=== PATIENT | female | born 1990 | race African-American/Black ===

== ENCOUNTER 2017-01-18 16:47 | Inpatient (IN) | payer OTHER ==
[~2017-01-18] VITALS: Ht 162.6 cm; Wt 77.0 kg
[~2017-01-18 16:47] MED LIST: PROC2.5C RECTAL; TERC.4%V VAGINAL
[2017-01-18] MEDS ORDERED: LACTATED RINGER'S 1000 ML INJ 1,000 ML IV PRN (17:50)
[2017-01-18] MEDS ORDERED: LIDOCAINE HCL 1% 50 ML VIAL I-DERMAL PRN (18:00)
[2017-01-18] MEDS ORDERED: OXYTOCIN 30 UNITS-500ML PREMIX 500 ML IV SCH (18:00)
[2017-01-18] MEDS ORDERED: ONDANSETRON HCL 4 MG/2 ML VIAL IV PRN (18:00)
[2017-01-18] MEDS ORDERED: PENICILLIN G POTASSIUM INJ 5,000,000 UNITS in SODIUM CHLORIDE 0.9% INJ 100 ML IV ONE (18:00)
[2017-01-18] MEDS ORDERED: LIDOCAINE HCL 1% 50 ML VIAL INFIL PRN (18:00)
[2017-01-18] MEDS ORDERED: SODIUM CHLORID 0.9% 500 ML INJ 500 ML IV PRN (18:00)
[2017-01-18] MEDS ORDERED: MINERAL OIL 10 ML VIAL TOPICAL PRN (18:00)
[2017-01-18] MEDS ORDERED: CITRIC ACID-SODIUM CITRATE LIQ 30 ML UDC PO SCH (18:00)
[2017-01-18] MEDS ORDERED: OXYTOCIN 30 UNITS-500ML PREMIX 500 ML IV ONE (18:00)
--- NOTE | 2017-01-18 18:08 | PD ---
HPI Chief Complaint ROM, rule out labor Date Seen: Jan 18, 2017 Time Seen: 17:57 Travel History International Travel<30 Days: No Contact w/Intl Traveler<30Days: No Known Affected Area: No History of Present Illness HPI 26y at 34/2 with EDC 02/27/17 from [facility] who presents with clear rupture of membranes earlier this morning at 7:45am. Feeling an occasional contraction "here and there", report continuously leaking amniotic fluid "filling four diapers", continued movement. Denies vaginal bleeding. She has follows with [facility]. We do not have labs with the chart. Does NOT want epidural. 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 Outcome Route Length of Anesthesia Delivery Date Age/Wks # Weight/Sex Labor Location Labor 11/08/13 41 1 Live Vaginal 5 lbs 4 oz - M 22 Hrs None [place] No 11/06/15 38 1 Live Vaginal 4 lbs 8 oz - F 22 Hrs None [place] No Progression #: 3 Date EGA BP Wt Alb Glu FuHt Pres FHR F/m CTX Edema Dil Eff Sta Prov 11/20/16 25w6d 116/46 163 n 25 Unstable 146 Active Absent Absent 0 0 lb 12/22/16 30w3d 122/80 166 tr n 30 Ceph 150 Active Absent Absent lb 01/05/17 32w3d 112/64 170 n n 32 Ceph 146 Active Absent Absent sc Past Surgical History Narrative Surgical Surgical removal dermoid cyst x2 Family History Narrative Family History Denies family history of bleeding disorders, cancer, or other relevant genetic disorders Family History: Negative Social History Narrative Social History Alcohol Use: No Tobacco Use: No Substance Abuse: No Allergies-Medications (Allergen,Severity, Reaction): Coded Allergies: Kiwi (Verified Allergy, Severe, Nausea/Vomiting, 01/18/17) NAUSEA VOMITING AND DIARRHEA PER PT 11/25 Latex (Verified Allergy, Severe, Hives, 01/18/17) Home Meds Active Scripts Hydrocortisone Rectal (Proctosol Hc)2.5% Cream1 Applic RECTAL BID PRN (PAIN/ INFLAMMATION) #1 TUBE Ref 2 Prov:Rossana Sorensen VENDING SERVICE TECHNICIAN 01/05/17 W/O Vit A W/ Fe Carbo (Prenate Mini 18-0.6-0.4-350 mg)1 Cap Cap Sample #2 Prov:Mirtha Cope CNM VENDING SERVICE TECHNICIAN 11/20/16 Review of Systems Except as stated in HPI: all other systems reviewed are Neg Physical Exam Reviewed in OB trace. Normotensive. Pulse wnl. Breathing well on room air. Narrative GENERAL: Gravid AA female. SKIN: Warm and dry. HEAD: Normocephalic and atraumatic. EYES: No scleral icterus. No injection or drainage. ENT: No nasal drainage noted. Mucous membranes moist. Airway patent. NECK: Supple, trachea midline. No JVD. CARDIOVASCULAR: Pulse within normal limits. Good peripheral perfusion. RESPIRATORY: Breathing well on room air. ABDOMEN/GI: Abdomen gravid, appropriate for dates : -50/ -3, very high and posterior SROM 01/18/17: 0745 FHT's: Category: 1 Baseline: 130 Reactive: yes Variability: mod Decels: no EXTREMITIES: No cyanosis or edema. BACK: Without obvious deformity NEUROLOGICAL: Awake and alert. Motor and sensory grossly within normal limits. Speech soft, with somewhat childish affect Data Data Vital Signs Reviewed: Yes Orders Ob (2e) Additional Admit Info (01/18/17 17:26) Admit To Inpatient (01/18/17 ) Code Status (01/18/17 17:50) Vital Signs (Adult) .Per protocol (01/18/17 17:50) Activity Oob Ad Bre (01/18/17 17:50) Heart (01/18/17 17:50) Amnioinfusion (01/18/17 17:50) Urinary Catheter Management .ONCE (01/18/17 17:50) Diet Liquid (01/18/17 Dinner) Lactated Ringer's 1000 Ml Inj (Lr 1000 M (01/18/17 17:50) Lactated Ringer's 1000 Ml Inj (Lr 1000 M (01/18/17 17:50) Sodium Chlorid 0.9% 500 Ml Inj (Ns 500 M (01/18/17 18:00) Sodium Chlor 0.9% 1000 Ml Inj (Ns 1000 M (01/18/17 18:10) Lidocaine 1% Inj (50 Ml) (Xylocaine 1% I (01/18/17 18:00) Citric Acid-Sodium Citrate Liq (Bicitra (01/18/17 18:00) Ondansetron Inj (Zofran Inj) (01/18/17 18:00) Fentanyl Inj (Fentanyl Inj) (01/18/17 18:00) Fentanyl Inj (Fentanyl Inj) (01/18/17 18:00) Penicillin G Potassium Inj (Pfizerpen-G (01/18/17 18:00) Penicillin G Potassium Inj (Pfizerpen-G (01/18/17 22:00) Complete Blood Count With Diff (01/18/17 17:50) Hold Clot (01/18/17 17:50) Abo/Rh Blood Type (01/18/17 17:50) Urinalysis - C+S If Indicated (01/18/17 17:50) Resp Oxygen Non Rebreathe Mask (01/18/17 ) ^ Epidural / Intrathecal Infus (01/18/17 17:50) Oxytocin 30 Units-500ml Premix (Pitocin (01/18/17 18:00) Lidocaine 1% Inj (50 Ml) (Xylocaine 1% I (01/18/17 18:00) Light Mineral Oil (Muri-Lube Oil) (01/18/17 18:00) Inpatient Certification (01/18/17 ) Specimen To Be Collected PRN (01/18/17 17:50) ^ Non Stress Test (01/18/17 17:54) Response To Medication .Post New Med Administration, Reaction (01/18/17 17:54) ^ Discontinue Medication (01/18/17 17:54) Oxytocin 30 Units-500ml Premix (Pitocin (01/18/17 18:00) MDM Medical Record Reviewed: Yes Plan 26y at 34/2 presenting in active labor with clear SROM at 01/18/17 at 0745. 1. Intrauterine with PPROM Admit for Labor Category I tracing ROM 11hr at present (since 0745) 3cm/40/-3, will induce with Pitocin, start after reassuring strip obtained Will draw routine labs, as we do not have- CBC RPR, Hepatitis panel, U/ A, Type and Screen Anticipate vaginal delivery 2. GBS unknown Will treat with PNC (pre-term and GBS status unknown) 3. Hx of Anxiety/PTSD/Post Depression s/p Sandhu Act (01/2016) Reassurance provided OB UDS pending 4. Refusal of Blood Products for Christian Reasons Jehovah Witness, form signed 5. Hemorrhoids Preparation H PRN SDW: Dr. Naty Arce DW: Jeannette Mackenzie MD R1 Jan 18, 2017 18:08
[2017-01-18] MEDS ORDERED: SODIUM CHLOR 0.9% 1000 ML INJ 1,000 ML IV PRN (18:10)
--- NOTE | 2017-01-18 18:37 | HHI.HP ---
History & Physical H&P MEDICAL BILLING REPRESENTATIVE H&P Patient Name: Kalyn Hagen Unit Number: [id number] Date of : 1990 Patient Status: Admitted Inpatient Attending Doctor: Luis Mena II, MD HPI HPI Chief Complaint ROM, rule out labor Date Seen: Jan 18, 2017 Time Seen: 17:57 Travel History International Travel<30 Days: No Contact w/Intl Traveler<30Days: No Known Affected Area: No History of Present Illness HPI 26y at 34/2 with EDC 02/27/17 from [facility] who presents with clear rupture of membranes earlier this morning at 7:45am. Feeling an occasional contraction "here and there", report continuously leaking amniotic fluid "filling four diapers", continued movement. Denies vaginal bleeding. She has follows with [facility]. We do not have labs with the chart. Does NOT want epidural. 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 Outcome Route Length of Anesthesia Delivery Date Age/Wks # Weight/Sex Labor Location Labor 11/08/13 41 1 Live Vaginal 5 lbs 4 oz - M 22 Hrs None [place] No 11/06/15 38 1 Live Vaginal 4 lbs 8 oz - F 22 Hrs None [place] No Progression #: 3 Date EGA BP Wt Alb Glu FuHt Pres FHR F/m CTX Edema Dil Eff Sta Prov 11/20/16 25w6d 116/46 163 n 25 Unstable 146 Active Absent Absent 0 0 lb 12/22/16 30w3d 122/80 166 tr n 30 Ceph 150 Active Absent Absent lb 01/05/17 32w3d 112/64 170 n n 32 Ceph 146 Active Absent Absent sc Past Surgical History Narrative Surgical Surgical removal dermoid cyst x2 Family History Narrative Family History Denies family history of bleeding disorders, cancer, or other relevant genetic disorders Family History: Negative Social History Narrative Social History Alcohol Use: No Tobacco Use: No Substance Abuse: No Allergies-Medications Allergies-Medications (Allergen,Severity, Reaction): Coded Allergies: Kiwi (Verified Allergy, Severe, Nausea/Vomiting, 01/18/17) NAUSEA VOMITING AND DIARRHEA PER PT 11/25 Latex (Verified Allergy, Severe, Hives, 01/18/17) Home Meds Active Scripts Hydrocortisone Rectal (Proctosol Hc)2.5% Cream1 Applic RECTAL BID PRN (PAIN/ INFLAMMATION) #1 TUBE Ref 2 Prov:Rossana Sorensen [place] 01/05/17 W/O Vit A W/ Fe Carbo (Prenate Mini 18-0.6-0.4-350 mg)1 Cap Cap Sample #2 Prov:Mirtha Cope CNM [place] 11/20/16 ROS Review of Systems Except as stated in HPI: all other systems reviewed are Neg Physical Exam Physical Exam Reviewed in OB trace. Normotensive. Pulse wnl. Breathing well on room air. Narrative GENERAL: Gravid AA female. SKIN: Warm and dry. HEAD: Normocephalic and atraumatic. EYES: No scleral icterus. No injection or drainage. ENT: No nasal drainage noted. Mucous membranes moist. Airway patent. NECK: Supple, trachea midline. No JVD. CARDIOVASCULAR: Pulse within normal limits. Good peripheral perfusion. RESPIRATORY: Breathing well on room air. ABDOMEN/GI: Abdomen gravid, appropriate for dates : 3 / 40-50/ -3, very high and posterior SROM 01/18/17: 0745 FHT's: Category: 1 Baseline: 130 Reactive: yes Variability: mod Decels: no EXTREMITIES: No cyanosis or edema. BACK: Without obvious deformity NEUROLOGICAL: Awake and alert. Motor and sensory grossly within normal limits. Speech soft, with somewhat childish affect Data Data Data Vital Signs Reviewed: Yes Orders Ob (2e) Additional Admit Info (01/18/17 17:26) Admit To Inpatient (01/18/17 ) Code Status (01/18/17 17:50) Vital Signs (Adult) .Per protocol (01/18/17 17:50) Activity Oob Ad Bre (01/18/17 17:50) Heart (01/18/17 17:50) Amnioinfusion (01/18/17 17:50) Urinary Catheter Management .ONCE (01/18/17 17:50) Diet Liquid (01/18/17 Dinner) Lactated Ringer's 1000 Ml Inj (Lr 1000 M (01/18/17 17:50) Lactated Ringer's 1000 Ml Inj (Lr 1000 M (01/18/17 17:50) Sodium Chlorid 0.9% 500 Ml Inj (Ns 500 M (01/18/17 18:00) Sodium Chlor 0.9% 1000 Ml Inj (Ns 1000 M (01/18/17 18:10) Lidocaine 1% Inj (50 Ml) (Xylocaine 1% I (01/18/17 18:00) Citric Acid-Sodium Citrate Liq (Bicitra (01/18/17 18:00) Ondansetron Inj (Zofran Inj) (01/18/17 18:00) Fentanyl Inj (Fentanyl Inj) (01/18/17 18:00) Fentanyl Inj (Fentanyl Inj) (01/18/17 18:00) Penicillin G Potassium Inj (Pfizerpen-G (01/18/17 18:00) Penicillin G Potassium Inj (Pfizerpen-G (01/18/17 22:00) Complete Blood Count With Diff (01/18/17 17:50) Hold Clot (01/18/17 17:50) Abo/Rh Blood Type (01/18/17 17:50) Urinalysis - C+S If Indicated (01/18/17 17:50) Resp Oxygen Non Rebreathe Mask (01/18/17 ) ^ Epidural / Intrathecal Infus (01/18/17 17:50) Oxytocin 30 Units-500ml Premix (Pitocin (01/18/17 18:00) Lidocaine 1% Inj (50 Ml) (Xylocaine 1% I (01/18/17 18:00) Light Mineral Oil (Muri-Lube Oil) (01/18/17 18:00) Inpatient Certification (01/18/17 ) Specimen To Be Collected PRN (01/18/17 17:50) ^ Non Stress Test (01/18/17 17:54) Response To Medication .Post New Med Administration, Reaction (01/18/17 17:54) ^ Discontinue Medication (01/18/17 17:54) Oxytocin 30 Units-500ml Premix (Pitocin (01/18/17 18:00) MDM MDM Medical Record Reviewed: Yes Plan 26y at 34/2 presenting in active labor with clear SROM at 01/18/17 at 0745. LATEX ALLERGY. JEHOVAH WITNESS. 1. Intrauterine with PPROM Admit for Labor Routine Care Category I tracing reassuring ROM 11hr at present (since 744) 3cm/40/-3, will induce, start Pitocin after reassuring strip obtained Need routine labs- CBC RPR, Hepatitis panel, U/A, Type and Screen pending Anticipate vaginal delivery 2. GBS unknown Will treat with PNC (pre-term and GBS status unknown) 3. Hx of Anxiety/PTSD/Post Depression s/p Sandhu Act (01/2016) Reassurance provided OB UDS pending 4. Refusal of Blood Products for Jew Reasons Jehovah Witness, form signed 5. Hemorrhoids Preparation H PRN SDW: Dr. Naty Arce DW: Jeannette Mackenzie MD R1 Jan 18, 2017 18:37
[2017-01-18] MEDS: LACTATED RINGER'S 1000 ML INJ 1,000 ML IV SCH ×2 (18:42→22:32)
[2017-01-18 19:01] LABS: BASOPHIL % 0.4 % (0.0-2.0); EOSINOPHIL # 0.1 TH/MM3 (0-0.4); EOSINOPHIL % 0.6 % (0.0-4.0); HEMATOCRIT 31.1 % (35.0-46.0); HEMO FLAGS DIFF FINAL; LYMPHOCYTE # 2.6 TH/MM3 (1.0-4.8); MEAN CELL VOLUME 84.9 FL (80.0-100.0); MEAN CORPUSCULAR HEMOGLOBIN 28.8 PG (27.0-34.0); MEAN CORPUSCULAR HGB CONC 33.9 % (32.0-36.0); MONO % 9.6 % (0.0-8.0); NEUT % 69.4 % (16.0-70.0); PLATELET COUNT 276 TH/MM3 (150-450); RED BLOOD COUNT 3.66 MIL/MM3 (4.00-5.30); RED CELL DISTRIBUTION WIDTH 13.5 % (11.6-17.2); WHITE BLOOD COUNT 12.9 TH/MM3 (4.0-11.0)
[2017-01-18 19:06] LABS: BACTERIA, URINE RARE /hpf; BLOOD, URINE TRACE (NEG); COMMENT (UR) CULTURE INDICATED; CULTURE IF INDICATED CULTURE INDICATED; GLUCOSE,URINE NEG (NEG); KETONE, URINE NEG (NEG); MUCUS URINE FEW /lpf (OCC); NITRITE,URINE NEG (NEG); PH, URINE 7.5 (5.0-8.5); SQUAMOUS EPITHELIAL CELL URINE 13 /hpf (0-5); URINE COLOR LIGHT-YELLOW (YELLW/STRAW)
[2017-01-18 19:08] LABS: AMPHETAMINE, URINE NEG (NEG); BARBITURATES, URINE NEG (NEG); COCAINE, URINE NEG (NEG)
[2017-01-18] MEDS ORDERED: PENICILLIN G POTASSIUM INJ 2,500,000 UNITS in SODIUM CHLORIDE 0.9% INJ 100 ML IV SCH (22:00)
[2017-01-19] MEDS ORDERED: ALUMINUM/MAGNESIUM/SIMETH 30 ML CUP PO PRN (00:30)
[2017-01-19] MEDS ORDERED: SODIUM CHLORIDE 0.9% FLUSH 10 ML FLUSH IV FLUSH PRN (00:30)
[2017-01-19] MEDS ORDERED: ZOLPIDEM TARTRATE 5 MG TAB PO PRN (00:30)
[2017-01-19] MEDS ORDERED: BENZOCAINE 20% TOPICAL SPRAY 60 ML CAN TOPICAL PRN (00:30)
[2017-01-19] MEDS ORDERED: ONDANSETRON ODT 4 MG TAB PO PRN (00:30)
[2017-01-19] MEDS ORDERED: WITCH HAZEL 50%/GLYCERIN 12.5% 40 PAD JAR TOPICAL PRN (00:30)
--- NOTE | 2017-01-19 00:46 | PD.OB.DELI ---
Anesthesia: None Episiotomy: None Vaginal Delivery: Normal Presentation: Occiput anterior Nuchal Cord: x1 (easily reduced) Delayed cord clamping (45 sec): Yes Infant: Male One Minute : 8 Five Minute : 8 Weight: 2400g Placenta: Spontaneous delivery, Intact, Cord pH (cord blood gas ordered) Laceration: No lacerations Additional Information Uncomplicated supervised by Dr. Mena and Dr. Ramon Arce. Brayden Nascimento MD R1 Jan 19, 2017 00:46
[2017-01-19 00:55] LABS: BLOOD GAS BASE EXCESS -2.6 mmol/L (-2-2); BLOOD GAS O2 HGB SATURATION 58 % (90-100); CORD BLOOD GAS HCO3 22 mmol/L (21-29); CORD BLOOD GAS PCO2 37 mmHG (34-78); CORD BLOOD GAS PH 7.39 (7.14-7.42); CORD BLOOD GAS PO2 26 mmHG (3.0-40.0); DRAW SITE CORD BLOOD; STAT YES
[2017-01-19] MEDS: DOCUSATE SODIUM 50 MG/SENNA 8.6 MG TAB PO PRN ×2 (07:45→21:51)
[2017-01-19] MEDS: IBUPROFEN 600 MG TAB PO PRN ×3 (07:45→21:51)
[2017-01-19] MEDS ORDERED: SODIUM CHLORIDE 0.9% FLUSH 10 ML FLUSH IV FLUSH SCH (09:00)
--- NOTE | 2017-01-19 09:23 | HHI.OB ---
Subjective Post Day: 0 Remarks Ms. Hagen is a 26 yo who is PPD 1 from (01/19 at 0016). Ms. Hagen reports that she is doing well. Patient ambulating well. Patient reports that abdominal pain is mild/controlled. Patient reports some dysuria. Patient states that she iseating well. Mild vaginal bleeding. No shortness of breath or leg swelling reported. Objective Vitals/I&O BP 102/65 HR 62 RR 18 T 98.4 Objective Remarks GENERAL: Well-nourished, well-developed patient. CARDIOVASCULAR: Regular rate and rhythm without murmurs, gallops, or rubs. RESPIRATORY: Breath sounds equal bilaterally. No accessory muscle use. ABDOMEN/GI: Abdomen soft, non-tender. Fundus: Firm, non-tender at umbilicus. GENITOURINARY: Light to moderate bleeding. EXTREMITIES: No cyanosis or edema, non-tender, without signs of DVT. Medications and IVs Current Medications Medications (Trade) Dose Ordered Sig/Alec Route Start Time Stop Time Status Last Admin (NS Flush) 2 ml BID IV FLUSH 01/19/17 09:00 (NS Flush) 2 ml UNSCH PRN IV FLUSH 01/19/17 00:30 (Tylenol) 650 mg Q4H PRN PO 01/19/17 00:30 (Motrin) 600 mg Q6H PRN PO 01/19/17 00:30 01/19/17 07:45 (Americaine 20% Top Spr) 1 spray Q4H PRN TOPICAL 01/19/17 00:30 (Tucks Pads) 1 applic QID PRN TOPICAL 01/19/17 00:30 (Paula-Colace) 2 tab Q12H PRN PO 01/19/17 00:30 01/19/17 07:45 (Ambien) 5 mg HS PRN PO 01/19/17 00:30 (M-M-R Ii Inj) 0.5 ml ONCE ONCE SQ 01/19/17 16:00 01/19/17 16:01 (Boostrix Inj) 0.5 ml ONCE ONCE IM 01/19/17 16:00 01/19/17 16:01 (Mag-Al Plus Susp Liq) 15 ml Q8H PRN PO 01/19/17 00:30 (Zofran Odt) 4 mg Q6H PRN PO 01/19/17 00:30 Assessment/Plan Problem List: (1) care and examination Assessment and Plan 26 yo who is PPD 1 from (01/19 at 0016) -Continue to monitor VS -Continue to encourage ambulation -Motrin /Percocet PRN for pain control -Continue stool softener -Pelvic rest -Mother desires breast feeding per EMR; in NICU () but will attempt to facilitate if possible -Plan for 6 week follow-up -Dysuria Impression: Urine culture pending -Will monitor culture; will treat if UTI present on culture Josef Laws MD R2 Jan 19, 2017 09:23
[2017-01-19] MEDS: ACETAMINOPHEN 325 MG TAB PO PRN ×2 (14:47→21:51)
[2017-01-19 15:58] LABS: RAPID PLASMA REAGIN SCREEN NON-REACTIVE (NON-REACTVE)
[2017-01-19] MEDS ORDERED: DIPHTH/TETANUS/ACEL PERTUSSIS (BOOSTER) 0.5 ML VIAL/PFS IM ONE (16:00)
[2017-01-19] MEDS ORDERED: MEASLES, MUMPS, RUBELLA VACCINE 0.5 ML VIAL SQ ONE (16:00)
--- NOTE | 2017-01-20 08:42 | HHI.OB ---
Subjective Post Day: 1 Remarks Ms. Hagen is a 26 yo who is PPD 1 from (01/19 at 0016). Ms. Hagen reports that she is doing well overall. She reports crying last night due to difficulties with breast pumping and nipple cracking. Patient states that her abdominal pain is controlled with Motrin. Patient ambulating well. Patient reports mild vaginal bleeding. Patient reports some dysuria. Patient states that she is eating well. Patient passing gas; no bowel movements yet. No shortness of breath or leg swelling reported. Patient states that her mood is stable at this time. Patient elaborated on prior history of depression; she states that she voluntarily Sandhu Acted herself. Patient does not feel depressed at this time, just frustrated that she will not be able to stay near her baby while he is in the NICU. Patient reports seeing a holistic provider for her mood and that she does not take any antidepressants. Patient open to receiving list of metal inspector for psychiatric care if her mood worsens. (Josef Laws MD R2) Objective Vitals/I&O BP 113/56 HR 67 RR 20 T 98.7 Objective Remarks GENERAL: Well-nourished, well-developed patient. CARDIOVASCULAR: Regular rate and rhythm without murmurs. RESPIRATORY: CTAB, normal rate ABDOMEN/GI: Abdomen soft, non-tender. Fundus: Firm, non-tender at umbilicus. GENITOURINARY: Light to moderate bleeding. EXTREMITIES: No cyanosis or edema, non-tender, without signs of DVT. Medications and IVs Current Medications Medications (Trade) Dose Ordered Sig/Alec Route Start Time Stop Time Status Last Admin (NS Flush) 2 ml BID IV FLUSH 01/19/17 09:00 (NS Flush) 2 ml UNSCH PRN IV FLUSH 01/19/17 00:30 (Tylenol) 650 mg Q4H PRN PO 01/19/17 00:30 01/19/17 21:51 (Motrin) 600 mg Q6H PRN PO 01/19/17 00:30 01/19/17 21:51 (Americaine 20% Top Spr) 1 spray Q4H PRN TOPICAL 01/19/17 00:30 (Tucks Pads) 1 applic QID PRN TOPICAL 01/19/17 00:30 (Paula-Colace) 2 tab Q12H PRN PO 4/10/17 00:30 01/19/17 21:51 (Ambien) 5 mg HS PRN PO 01/19/17 00:30 (Mag-Al Plus Susp Liq) 15 ml Q8H PRN PO 01/19/17 00:30 (Zofran Odt) 4 mg Q6H PRN PO 01/19/17 00:30 (Josef Laws MD R2) Assessment/Plan Problem List: (1) care and examination Assessment and Plan 26 yo who is PPD 1 from (01/19 at 0016) -Continue to monitor VS -Continue to encourage ambulation -Motrin PRN for pain control -Continue stool softener -Pelvic rest -Continue pumping at this time -Plan for 6 week follow-up -Dysuria Impression: Urine culture pending -01/18 Premature growth, reincubating -Will monitor culture; will treat if UTI present on culture History of Depression Impression: Patient reports mood controlled at this time; patient states she treats mood symptoms holistically. Previous Aripiprazole after last for severe PPD. -Will consult case management to provide list of metal inspector/Psych providers in the area -Follow-up with patient's holistic provider -Counselled on mood worsening; patient acknowledges need to seek help at ED if necessary for mood worsening Discharge Planning Anticipate discharge today vs tomorrow (Josef Laws MD R2) Attestation Patient seen and examined. Agree with resident's assessment and plan. (Theresa Longoria MD) Josef Laws MD R2 Jan 20, 2017 08:42 Theresa Longoria MD Jan 20, 2017 10:58
--- NOTE | 2017-01-21 07:28 | HHI.OB ---
Subjective Post Day: 2 Remarks day # 2. AFVSS overnight. Pain well-controlled. Lochia is less than a period. Denies dysuria. No breast tenderness. She is feeding the baby via breast. Appetite good. No nausea or vomiting. Positive flatus. No bowel movement. Ambulating well. Denies calf pain, shortness of breath, or cough. Otherwise, she is doing well this morning and has no other complaints. (EkoLolita MD R1) Objective Objective Remarks GENERAL: Well-nourished, well-developed patient. CARDIOVASCULAR: Regular rate and rhythm without murmurs. RESPIRATORY: CTAB, normal rate ABDOMEN/GI: Abdomen soft, tender to palpation in the LLQ (2/2 ovarian cyst). Fundus: Firm, non-tender at umbilicus. GENITOURINARY: Light to moderate bleeding. EXTREMITIES: No cyanosis or edema, non-tender, without signs of DVT. Medications and IVs Current Medications Medications (Trade) Dose Ordered Sig/Alec Route Start Time Stop Time Status Last Admin (NS Flush) 2 ml BID IV FLUSH 01/19/17 09:00 (NS Flush) 2 ml UNSCH PRN IV FLUSH 01/19/17 00:30 (Tylenol) 650 mg Q4H PRN PO 01/19/17 00:30 01/19/17 21:51 (Motrin) 600 mg Q6H PRN PO 01/19/17 00:30 01/19/17 21:51 (Americaine 20% Top Spr) 1 spray Q4H PRN TOPICAL 01/19/17 00:30 (Tucks Pads) 1 applic QID PRN TOPICAL 01/19/17 00:30 (Paula-Colace) 2 tab Q12H PRN PO 01/19/17 00:30 01/19/17 21:51 (Ambien) 5 mg HS PRN PO 01/19/17 00:30 (Mag-Al Plus Susp Liq) 15 ml Q8H PRN PO 01/19/17 00:30 (Zofran Odt) 4 mg Q6H PRN PO 01/19/17 00:30 (EkoLolita MD R1) Assessment/Plan Problem List: (1) care and examination Assessment and Plan 26 yo who is PPD 2 from (01/19 at 0016) -Continue to monitor VS -Continue to encourage ambulation -Motrin PRN for pain control -Continue stool softener -Pelvic rest -Continue pumping at this time -Plan for 6 week follow-up -Dysuria Impression: Urine culture pending -01/18 50-100,00 mixed gram positive organisms -Will hold off on treatment at this time History of Depression Impression: Patient reports mood controlled at this time; patient states she treats mood symptoms holistically. Previous Aripiprazole after last for severe PPD. -Will consult case management to provide list of counselors/Psych providers in the area -Follow-up with patient's holistic provider -Counseled on mood worsening; patient acknowledges need to seek help at ED if necessary for mood worsening Discussed with Dr. Yates Discharge Planning Anticipate discharge today -Pt will need stay close room (Lolita Causey MD R1) Collaborating MD Comments Patient has been seen and care discussed with resident team. I agree with present care management. (Annamarie Yates MD) Lolita Causey MD R1 Jan 21, 2017 07:28 Annamarie Yates MD Jan 21, 2017 09:11
--- NOTE | 2017-01-21 08:06 | HHI.DCPOC ---
Discharge Care Plan Diagnosis: (1) Vaginal delivery (2) care and examination (3) depression (4) Ovarian cyst affecting in third trimester, antepartum Report Symptoms to Your Doctor -Temperate above 100.5 degrees -Redness, of incision or excessive or foul smelling drainage -Unusual pain or calf pain -Increased vaginal bleeding -Painful or difficulty urinating -Feelings of extreme sadness or anxiety after 2 weeks Goals to Promote Your Health * To prevent worsening of your condition and complications * To maintain your health at the optimal level Directions to Meet Your Goals Take your medications as prescribed Follow your dietary instruction Follow activity as directed Ensure plenty of rest for recovery Drink fluids for hydration Keep your appointments as scheduled Take your immunizations and boosters as scheduled If your symptoms worsen call your PCP, if no PCP go to Urgent Care Center or Emergency Room Smoking is Dangerous to Your Health. Avoid second hand smoke Call the 24-hour crisis hotline for domestic abuse at Lolita Causey MD R1 Jan 21, 2017 08:06
[2017-01-21] MEDS ORDERED: IBUP-232 PO (08:09)
[2017-01-21] MEDS: IBUPROFEN 600 MG TAB PO PRN (09:49)
[2017-01-24 09:43] LABS: BATH SALTS (MDPV) UR NEG (NEG); ECSTASY (MDMA) UR NEG (NEG); HEROIN (6-ACETYLMORPHINE) UR NEG (NEG); K2 SPICE UR NEG (NEG); OBMETHADONE UR NEG (NEG); OXYCODONE (PERCODAN) NEG (NEG); PHENCYCLIDINE URINE NEG (NEG)
[2017-03-11] MEDS ORDERED: NORE1TAB58 PO (15:11)
== END 2017-01-21 11:30 | disposition home or self-care (01) | DRG 775 ==
LOC: HOBED 16:47 → H2EB 17:29 → EEVIPCON 17:29 → H1EA 01-19 03:03
PROVIDERS: ADMIT Obstetrics & Gynecology Maternal & Fetal Medicine; ATTEND Obstetrics & Gynecology Maternal & Fetal Medicine
PROC: 10E0XZZ Delivery of Products of Conception, External Approach (ICD-10-PCS; principal; 2017-01-18)
DX: O42.919 Preterm premature rupture of membranes, unspecified as to length of time between rupture and onset of labor, unspecified trimester (principal); O99.344 Other mental disorders complicating childbirth; F43.10 Post-traumatic stress disorder, unspecified; Z37.0 Single live birth; O69.81X0 Labor and delivery complicated by cord around neck, without compression, not applicable or unspecified; N64.0 Fissure and fistula of nipple; Z3A.34 34 weeks gestation of pregnancy; Z91.040 Latex allergy status
CPT/HCPCS: 80074; 80307; 81001; 82805; 84112; 85025; 86592; 86703; 86850; 86900; 86901; 87086; 88307; 90715; 99285; G0481; J2540; J2590; J7120

== ENCOUNTER 2017-05-19 01:22 | Emergency (ER) | payer OTHER ==
[~2017-05-19] VITALS: Ht 157.5 cm; Wt 70.0 kg
[~2017-05-19 01:22] MED LIST changes: +NORE1TAB58 PO; -PROC2.5C RECTAL; -TERC.4%V VAGINAL
[2017-05-19 01:33] VITALS: BP 135/80; PULSE 91; RESP 14; TEMP 98.2
[2017-05-19 02:12] LABS: BLOOD, URINE TRACE (NEG); GLUCOSE,URINE NEG (NEG); KETONE, URINE 15 mg/dL (NEG); NITRITE,URINE NEG (NEG)
[2017-05-19 02:19] LABS: MUCUS URINE MOD /lpf (OCC); URINE COLOR YELLOW (YELLW/STRAW)
[2017-05-19 02:20] LABS: BACTERIA, URINE FEW /hpf; COMMENT (UR) CULT NOT INDICATED; CULTURE IF INDICATED CULT NOT INDICATED; SQUAMOUS EPITHELIAL CELL URINE 0-5 /hpf (0-5)
--- NOTE | 2017-05-19 02:23 | PD ---
HPI Chief Complaint: Abdominal Pain Time Seen by Provider: 01:54 Travel History International Travel<30 days: No Contact w/Intl Traveler<30days: No Traveled to known affect area: No History of Present Illness HPI 27-year-old female presents with complaint of abdominal pain. Patient states she has a large ovarian cyst/mass. Patient had her last ultrasound December 2016 while . Patient was to follow-up with river pilot but reportedly was unable to do so. Patient notes increasing pain. Symptoms worsening evening this evening. Patient denies . No abnormal vaginal bleeding or discharge. No dysuria frequency or urgency. No fever or chills. PFSH Past Medical History Diminished Hearing: No Reproductive: Yes (ovarian cysts) Tetanus Vaccination: < 5 Years Influenza Vaccination: Yes ?: Unknown LMP: Last month : 1 Para: 1 Miscarriage: 1 : 0 Ovarian Cysts: Yes (X2) Past Surgical History Gynecologic Surgery: Yes (SURGERIES , RIGHT AND LEFT OVARIAN CYST REMOVALS) Social History Alcohol Use: No Tobacco Use: No Substance Use: Yes (MARIJUANA) Allergies-Medications (Allergen,Severity, Reaction): Coded Allergies: Kiwi (Verified Allergy, Severe, Nausea/Vomiting, 05/19/17) NAUSEA VOMITING AND DIARRHEA PER PT 2 Latex (Verified Allergy, Severe, Hives, 05/19/17) Reported Meds & Prescriptions Reported Meds & Active Scripts Active Ibuprofen 600 Mg Tab 600 Mg PO Q6H PRN Loestrin Fe 1.5/30 (Norethindrone-Ethinyl Estradiol-Fe) 1.5-30 Mg-Mcg Tab 1 Tab PO DAILY Review of Systems Except as stated in HPI: all other systems reviewed are Neg General / Constitutional: No: Fever, Chills HENT: No: Congestion Cardiovascular: No: Chest Pain or Discomfort Respiratory: No: Shortness of Breath Gastrointestinal: Positive: Abdominal Pain Genitourinary: No: Dysuria, Discharge, Vaginal Bleeding Skin: No Rash Neurologic: No: Weakness Psychiatric: No: Anxiety Hematologic/Lymphatic: No: Easy Bruising Physical Exam Narrative GENERAL: Well-developed well-nourished female in no respiratory distress SKIN: Warm and dry. HEAD: Normocephalic. EYES: No scleral icterus. No injection or drainage. NECK: Supple, trachea midline. No JVD or lymphadenopathy. CARDIOVASCULAR: Regular rate and rhythm without murmurs, gallops, or rubs. RESPIRATORY: Breath sounds equal bilaterally. No accessory muscle use. GASTROINTESTINAL: Abdomen soft mild tenderness to palpation overlying masslike distention of the lower abdomen supra pubic distended. Pelvic exam: Normal external exam no redness induration or lesions; speculum exam scant white mucous no blood no tissue no clots cervical os closed; bimanual exam no adnexal tenderness; no cervical motion tenderness firm uterine mass/enlargement. MUSCULOSKELETAL: No cyanosis, or edema. BACK: Nontender without obvious deformity. No CVA tenderness. Data Data Last Documented VS Vital Signs Date Time Temp Pulse Resp B/P Pulse Ox O2 Delivery O2 Flow Rate FiO2 05/19/17 04:28 98.0 93 17 127/82 98 Room Air Orders Gc And Chlamydia Pcr (05/19/17 01:54) Wet Prep Profile (05/19/17 01:54) Urinalysis - C+S If Indicated (05/19/17 01:54) Ed Urine Pregnancytest Poc (05/19/17 01:54) Ketorolac Inj (Toradol Inj) (05/19/17 02:30) Us Pelvis Comp W Doppler (05/19/17 ) Ondansetron Inj (Zofran Inj) (05/19/17 04:00) Morphine Inj (Morphine Inj) (05/19/17 04:00) Complete Blood Count With Diff (05/19/17 04:01) Basic Metabolic Panel (Bmp) (05/19/17 04:01) Potassium Chloride (Kcl) (05/19/17 04:45) Protein Corrected Calcium(Pcc) (05/19/17 04:10) Labs Laboratory Tests Test 05/19/17 05/19/17 02:07 04:10 Urine Color YELLOW Urine Turbidity SLIGHT Urine pH 6.0 Urine Specific [place] 1.030 Urine Protein TRACE mg/dL Urine Glucose (UA) NEG mg/dL Urine Ketones 15 mg/dL Urine Occult Blood TRACE Urine Nitrite NEG Urine Bilirubin NEG Urine Leukocyte Esterase NEG Urine RBC 4-9 /hpf Urine WBC 3-5 /hpf Urine Squamous Epithelial 0-5 /hpf Cells Urine Bacteria FEW /hpf Urine Mucus MOD /lpf Microscopic Urinalysis Comment CULT NOT INDICATED Clue Cells (Wet Prep) NONE SEEN Vaginal Trichomonas (Wet Prep) NONE SEEN Vaginal Yeast (Wet Prep) NONE SEEN White Blood Count 7.7 TH/MM3 Red Blood Count 4.41 MIL/MM3 Hemoglobin 12.3 GM/DL Hematocrit 37.7 % Mean Corpuscular Volume 85.4 FL Mean Corpuscular Hemoglobin 28.0 PG Mean Corpuscular Hemoglobin 32.7 % Concent Red Cell Distribution Width 14.3 % Platelet Count 317 TH/MM3 Mean Platelet Volume 8.4 FL Neutrophils (%) (Auto) 54.8 % Lymphocytes (%) (Auto) 34.0 % Monocytes (%) (Auto) 9.6 % Eosinophils (%) (Auto) 1.0 % Basophils (%) (Auto) 0.6 % Neutrophils # (Auto) 4.3 TH/MM3 Lymphocytes # (Auto) 2.6 TH/MM3 Monocytes # (Auto) 0.7 TH/MM3 Eosinophils # (Auto) 0.1 TH/MM3 Basophils # (Auto) 0.0 TH/MM3 CBC Comment DIFF FINAL Differential Comment Sodium Level 141 MEQ/L Potassium Level 3.1 MEQ/L Chloride Level 112 MEQ/L Carbon Dioxide Level 19.4 MEQ/L Anion Gap 10 MEQ/L Blood Urea Nitrogen 11 MG/DL Creatinine 0.66 MG/DL Estimat Glomerular Filtration 132 ML/MIN Rate Random Glucose 55 MG/DL Calcium Level 7.2 MG/DL [facility] Medical Decision Making Medical Screen Exam Complete: Yes Emergency Medical Condition: Yes Medical Record Reviewed: Yes (US 12-23-16 "large adnexal cystic mass 13.6x12.7x11.9 CM h/o adnexal dermoid mass excisions) Interpretation(s) POC hcg: negative Pelvic US: UTERUS: The myometrium has homogeneous echotexture without mass. RIGHT OVARY: 1.3.4 centimeters simple cyst right ovary. LEFT OVARY: 2.5 x 1.6 x 2.3 cm cyst left ovary and a 16.1 x 17.1 x 10.4 cm cystic mass left ovary, mostly anechoic however there are areas of mural nodularity without definite internal blood flow. MISCELLANEOUS: No free fluid. CONCLUSION: 1. Bilateral adnexal masses are identified including simple cyst right ovary next 17.1 cm mostly anechoic cystic mass left ovary with areas of peripheral nodularity and septations without definite internal blood flow. 2. Uterus unremarkable. Arya Warren MD on May 19, 2017 at 3:49 Board Certified Radiologist. This report was verified electronically. wet prep: negative [id number] Differential Diagnosis Pelvic pain, ovarian cyst, ovarian mass, , torsion, UTI, appendicitis Narrative Course IV access obtained; patient administered Toradol after negative [id number] hCG Urinalysis reveals no acute abnormality Ultrasound of pelvis ordered with Doppler ultrasound resulted and ultrasound discussed with on-call river pilot who recommends patient to follow-up this week in the office in order to have surgery scheduled to have excision of the left ovary adnexal mass; this is discussed with the patient who states that her pain is gone but returns intermittently. Patient requests that her be notified of the ultrasound results therefore patient's Jose Martin Hagen at [phone] was contacted and informed that ultrasound does confirm that the adnexal mass is increasing in size that gynecology has been consult at and they request patient to be seen this week in the office to schedule elective surgery call excision of the mass. Patient's reports understanding of the need to have patient seen this week as recommended by the river pilot. Potassium: 3.1, oral potassium replacement administered Physician Communication Physician Communication discussed with Dr Krishnamurthy--will see in the office this week to schedule adnexal mass removal Diagnosis Primary Impression: Adnexal mass Additional Impressions: Ovarian cyst Qualified Code: N83.201 - Cysts of both ovaries Hypokalemia Referrals: Roseanne Krishnamurthy MD 1 day call office in the AM to schedule appt this week Patient Instructions: General Instructions Additional Instructions: Follow-up with river pilot this week call office in a.m. to schedule follow-up appointment with Dr. Krishnamurthy Add potassium and calcium containing foods and beverages to dietary intake Take pain medication as prescribed as needed Return to the emergency department for any concerns or change in condition Increase fluid hydration Med/Other Pt SpecificInfo: Prescription(s) given Scripts Ibuprofen 600 Mg [id number] Mg PO Q6H PRN (Pain/Inflammation) #15 TAB Ref 0 Prov:Elizabeth Rodriguez MD 05/19/17 Disposition: 01 DISCHARGE HOME Condition: Stable Elizabeth Rodriguez MD May 19, 2017 02:23
[2017-05-19] MEDS ORDERED: KETOROLAC TROMETHAMINE 30 MG/ML (IVP) VIAL IV PUSH ONE (02:30)
[2017-05-19 02:35] VITALS: BP 101/53; PULSE 75; RESP 15; O2SAT 99
[2017-05-19 03:34] VITALS: BP 123/69; PULSE 88; RESP 16; TEMP 98.1; O2SAT 98
--- NOTE | 2017-05-19 03:53 | RADRPT ---
EXAM DATE/TIME: 05/19/2017 03:01 [place] COMPARISON: No previous studies available for comparison. INDICATIONS : Pelvic pain. Ovarian cyst. MEDICAL HISTORY : Ovarian cysts. Substance use. SURGICAL HISTORY : Bilateral ovarian cysts removals. x2. ENCOUNTER: Subsequent ACUITY: 4-6 months PAIN SCORE: 10/10 LOCATION: Bilateral pelvis MEASUREMENTS: UTERUS: 8.6 x 5.1 x 4.6 cm ENDOMETRIAL STRIPE: 2 mm RIGHT OVARY: 4.3 x 4.4 x 5.2 cm LEFT OVARY: 16.7 x 15.8 x 9.0 cm FINDINGS: UTERUS: The myometrium has homogeneous echotexture without mass. RIGHT OVARY: 1.3.4 centimeters simple cyst right ovary. LEFT OVARY: 2.5 x 1.6 x 2.3 cm cyst left ovary and a 16.1 x 17.1 x 10.4 cm cystic mass left ovary, mostly anechoi c however there are areas of mural nodularity without definite internal blood flow. MISCELLANEOUS: No free fluid. CONCLUSION: 1. Bilateral adnexal masses are identified including simple cyst right ovary next 17.1 cm mostly anec hoic cystic mass left ovary with areas of peripheral nodularity and septations without definite inter nal blood flow. 2. Uterus unremarkable. Arya Warren MD on May 19, 2017 at 3:49 Board Certified Radiologist. This report was verified electronically.
[2017-05-19] MEDS ORDERED: MORPHINE SULFATE 8 MG/ML INJ IV PUSH ONE (04:00)
[2017-05-19] MEDS ORDERED: ONDANSETRON HCL 4 MG/2 ML VIAL IV PUSH ONE (04:00)
[2017-05-19 04:24] LABS: AUTOMATED NEUTROPHIL # 4.3 TH/MM3 (1.8-7.7); BASOPHIL % 0.6 % (0.0-2.0); EOSINOPHIL # 0.1 TH/MM3 (0-0.4); HEMATOCRIT 37.7 % (35.0-46.0); HEMO FLAGS DIFF FINAL; LYMPHOCYTE # 2.6 TH/MM3 (1.0-4.8); MEAN CELL VOLUME 85.4 FL (80.0-100.0); MEAN CORPUSCULAR HGB CONC 32.7 % (32.0-36.0); MONO % 9.6 % (0.0-8.0); NEUT % 54.8 % (16.0-70.0); PLATELET COUNT 317 TH/MM3 (150-450); RED BLOOD COUNT 4.41 MIL/MM3 (4.00-5.30); RED CELL DISTRIBUTION WIDTH 14.3 % (11.6-17.2); WHITE BLOOD COUNT 7.7 TH/MM3 (4.0-11.0)
[2017-05-19 04:28] VITALS: BP 127/82; PULSE 93; RESP 17; TEMP 98; O2SAT 98
[2017-05-19 04:33] LABS: POTASSIUM 3.1 MEQ/L (3.5-5.1)
[2017-05-19] MEDS ORDERED: POTASSIUM CHLORIDE 20 MEQ CONTROLLED RELEASE TAB PO ONE (04:45)
[2017-05-19] MEDS ORDERED: IBUP-232 PO (05:05)
[2017-05-19 05:09] LABS: BICARBONATE 19.4 MEQ/L (21.0-32.0)
[2017-05-19 05:25] LABS: CALCIUM-PROTEIN CORRECTED 7.5 MG/DL (8.5-10.1)
[2017-05-19] MEDS ORDERED: CALCIUM CARBONATE 500 MG CHEWABLE TAB CHEW ONE (05:30)
[2017-05-19 13:55] LABS: CHLAMYDIA PCR NOT DETECTED (NOT DETECT); NEISSERIA PCR NOT DETECTED (NOT DETECT)
== END 2017-05-19 05:44 | disposition home or self-care (01) ==
LOC: PHED 01:22
DX: N83.201 Unspecified ovarian cyst, right side (principal); N83.202 Unspecified ovarian cyst, left side; E87.6 Hypokalemia
CPT/HCPCS: 76856; 80048; 81001; 84155; 84703; 85025; 87210; 87491; 87591; 93975; 96374; 96375; 99285; J1885; J2270; J2405

== ENCOUNTER 2017-05-19 06:57 | Emergency (ER) | payer OTHER ==
[~2017-05-19] VITALS: Ht 154.9 cm; Wt 73.0 kg
[~2017-05-19 06:57] MED LIST changes: +IBUP-232 PO
[2017-05-19 07:11] VITALS: BP 125/69; PULSE 91; RESP 17; TEMP 97.8; O2SAT 99
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
[2017-05-19 08:44] LABS: ACETAMINOPHEN LESS THAN 2.0 MCG/ML (10.0-30.0); ALCOHOL LESS THAN 3 MG/DL (0-5)
[2017-05-19] MEDS ORDERED: ONDANSETRON ODT 4 MG TAB PO ONE (10:15)
[2017-05-19 11:08] VITALS: BP 116/78; PULSE 76; RESP 16; TEMP 97.8; O2SAT 99
[2017-05-19] MEDS ORDERED: diphenhydrAMINE HCL 50 MG CAP PO ONE (12:00)
[2017-05-19 13:09] VITALS: BP 123/76; PULSE 76; RESP 16; TEMP 97.8; O2SAT 99
[2017-05-19 13:36] VITALS: BP 102/71; TEMP 97.8
[2017-05-19 22:06] VITALS: BP 110/74; PULSE 58; RESP 18; TEMP 97.9; O2SAT 99
[2017-05-20 02:11] VITALS: BP 115/68; PULSE 86; RESP 18; TEMP 98.2; O2SAT 100
== END 2017-05-20 04:00 ==
LOC: NEPD 06:57 → NEPJ 05-20 04:00
DX: T74.21XA Adult sexual abuse, confirmed, initial encounter (principal); N83.201 Unspecified ovarian cyst, right side; F17.210 Nicotine dependence, cigarettes, uncomplicated; F41.9 Anxiety disorder, unspecified; F32.9 Major depressive disorder, single episode, unspecified; Z79.899 Other long term (current) drug therapy
CPT/HCPCS: 80307; 99284; Q0163

== ENCOUNTER 2017-05-20 18:05 | Emergency (ER) | payer OTHER ==
[~2017-05-20] VITALS: Ht 154.9 cm; Wt 70.0 kg
[~2017-05-20 18:05] MED LIST changes: -IBUP-232 PO
[2017-05-20 18:09] VITALS: BP 130/78; PULSE 70; RESP 20; TEMP 98.6; O2SAT 99
--- NOTE | 2017-05-20 18:10 | PD ---
Physical Exam Date Seen by Provider: May 20, 2017 Time Seen by Provider: 18:09 Narrative 27 yo female here for medical clearance to be seen by [facility] nurse. [facility] send her here. No other complains. Vitals are stable in triage. Awaiting Bed placement. Data Data Last Documented VS Vital Signs Date Time Temp Pulse Resp B/P Pulse Ox O2 Delivery O2 Flow Rate FiO2 05/20/17 18:09 98.6 70 20 130/78 99 Room Air [facility] Medical Record Reviewed: Yes Supervised Visit with BUBBA: No Tyler Salgado May 20, 2017 18:10
== END 2017-05-20 19:00 | disposition home or self-care (01) ==
LOC: NEPF 18:05
DX: Z02.89 Encounter for other administrative examinations (principal)
CPT/HCPCS: 99281

== ENCOUNTER 2017-05-22 10:53 | Emergency (ER) | payer OTHER ==
[~2017-05-22] VITALS: Ht 154.9 cm; Wt 72.7 kg
[2017-05-22 10:57] VITALS: BP 154/94; PULSE 75; RESP 14; TEMP 98.8; O2SAT 99
[2017-05-22] MEDS ORDERED: ARIP1TAB5 PO (11:14)
[2017-05-22] MEDS ORDERED: IBUPROFEN 400 MG TAB PO ONE (11:30)
[2017-05-22] MEDS ORDERED: ACETAMINOPHEN 500 MG CPLT PO ONE (11:30)
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
== END 2017-05-22 12:16 | disposition home or self-care (01) ==
LOC: NEPD 10:53
DX: R22.2 Localized swelling, mass and lump, trunk (principal); F41.9 Anxiety disorder, unspecified; F32.9 Major depressive disorder, single episode, unspecified; F17.210 Nicotine dependence, cigarettes, uncomplicated; Z79.899 Other long term (current) drug therapy
CPT/HCPCS: 99282

== ENCOUNTER 2017-05-27 12:16 | Emergency (ER) | payer OTHER ==
[~2017-05-27] VITALS: Ht 160 cm; Wt 55.0 kg
[~2017-05-27 12:16] MED LIST changes: +ARIP1TAB5 PO; -NORE1TAB58 PO
[2017-05-27 12:32] VITALS: BP 140/86; PULSE 74; RESP 20; TEMP 98.1; O2SAT 100
[2017-05-27] MEDS ORDERED: SODIUM CHLOR 0.9% 1000 ML INJ 1,000 ML IV SCH (13:26)
[2017-05-27] MEDS ORDERED: SODIUM CHLORIDE 0.9% FLUSH 10 ML FLUSH IV FLUSH PRN (13:30)
[2017-05-27 13:33] VITALS: BP 133/88; PULSE 82; RESP 18; O2SAT 100
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
[2017-05-27 14:02] LABS: AUTOMATED NEUTROPHIL # 2.3 TH/MM3 (1.8-7.7); BASOPHIL % 0.7 % (0.0-2.0); EOSINOPHIL % 0.9 % (0.0-4.0); HEMO FLAGS DIFF FINAL; LYMPH % 38.9 % (9.0-44.0); MEAN CELL VOLUME 83.9 FL (80.0-100.0); MEAN CORPUSCULAR HEMOGLOBIN 28.2 PG (27.0-34.0); MEAN CORPUSCULAR HGB CONC 33.6 % (32.0-36.0); MONO % 13.6 % (0.0-8.0); NEUT % 45.9 % (16.0-70.0); PLATELET COUNT 277 TH/MM3 (150-450); RED BLOOD COUNT 4.52 MIL/MM3 (4.00-5.30); RED CELL DISTRIBUTION WIDTH 14.3 % (11.6-17.2)
[2017-05-27 14:24] LABS: ANION GAP 16 MEQ/L (5-15); AST (GOT) 27 U/L (15-37); BICARBONATE 22.3 MEQ/L (21.0-32.0); BLOOD UREA NITROGEN 11 MG/DL (7-18); CHLORIDE 99 MEQ/L (98-107); GLOMERULAR FILTRATION RATE 100 ML/MIN (>89); POTASSIUM 3.3 MEQ/L (3.5-5.1); SODIUM (NA) 137 MEQ/L (136-145)
[2017-05-27 14:38] LABS: BACTERIA, URINE RARE /hpf; BLOOD, URINE LARGE (NEG); COMMENT (UR) CULTURE INDICATED; CULTURE IF INDICATED CULTURE INDICATED; GLUCOSE,URINE NEG (NEG); KETONE, URINE 80 mg/dL (NEG); MUCUS URINE FEW /lpf (OCC); NITRITE,URINE NEG (NEG); PH, URINE 5.5 (5.0-8.5); URINE COLOR RED (YELLW/STRAW)
[2017-05-27 14:46] LABS: ALKALINE PHOSPHATASE 55 U/L (45-117); ALT (GPT) 25 U/L (10-53); BETA HCG QUANT LESS THAN 1 MIU/ML (0-5); TOTAL BILIRUBIN ADULT 0.5 MG/DL (0.2-1.0)
[2017-05-27] MEDS ORDERED: DIATRIZOATE MEGLUM/DIATRIZOATE SOD 9 ML CUP ONE (15:03)
--- NOTE | 2017-05-27 17:38 | RADRPT ---
EXAM DATE/TIME: 05/27/2017 17:16 [place] COMPARISON: No previous studies available for comparison. INDICATIONS : Diffuse abdomen pain. IV CONTRAST: 95 cc Omnipaque 350 (iohexol) IV ORAL CONTRAST: Prescribed oral contrast ingested. RADIATION DOSE: 5.17 CTDIvol (mGy) MEDICAL HISTORY : Seizures. Hypertension. Carcinoma, ovarian. SURGICAL HISTORY : None. ENCOUNTER: Initial ACUITY: 1 day PAIN SCALE: 7/10 LOCATION: Bilateral abdomen TECHNIQUE: Volumetric scanning of the abdomen and pelvis was performed. Using automated exposure control and ad justment of the mA and/or kV according to patient size, radiation dose was kept as low as reasonably achievable to obtain optimal diagnostic quality images. DICOM format image data is available electro nically for review and comparison. FINDINGS: LOWER LUNGS: The visualized lower lungs are clear. LIVER: Homogeneous density without lesion. There is no dilation of the biliary tree. No calcified gallston es. SPLEEN: Normal size without lesion. PANCREAS: Within normal limits. KIDNEYS: Normal in size and shape. There is no mass, stone or hydronephrosis. ADRENAL GLANDS: Within normal limits. VASCULAR: There is no aortic aneurysm. BOWEL/MESENTERY: There is a large mildly complex cystic mass in the pelvis and lower abdomen measuring up to approxima tely 10.3 x 16 x 18 cm in greatest AP by transverse by caudal cranial dimension. This displaces the b owel peripherally. There are several small calcification and soft tissue density along the lower righ t side of the mass. ABDOMINAL WALL: Within normal limits. RETROPERITONEUM: There is no lymphadenopathy. BLADDER: No wall thickening or mass. REPRODUCTIVE: The uterus is unremarkable in appearance. There is a second smaller complex mass also noted in the po sterior right side of the pelvis up to 5.3 x 3.7 x 5.2 cm in greatest AP by transverse by caudocrania l dimension. This has a cystic and complex component as well as several small calcifications along th e anterior margin. There is no distinct free fluid. INGUINAL: There is no lymphadenopathy or hernia. MUSCULOSKELETAL: Within normal limits for patient age. CONCLUSION: 1. Large complex cystic mass filling the majority of the pelvis and lower abdomen most consistent wit h a complex cystic ovarian tumor. 2. Second smaller complex tumor in the right posterior pelvis with calcifications and cystic componen ts which also most likely represents a complex ovarian tumor. Brayden Olivas MD on May 27, 2017 at 17:32 Board Certified Radiologist. This report was verified electronically.
[2017-05-27] MEDS ORDERED: MACR100C2 PO (17:57)
[2017-05-27] MEDS ORDERED: NITROFURANTOIN MONOHYD MACROCR 100 MG CAP PO ONE (18:00)
[2017-05-27 18:22] VITALS: BP 106/62; PULSE 73; RESP 14; O2SAT 100
[2017-05-27] MEDS ORDERED: IOHEXOL 350 MG/ML 10 ML VIAL (for RAD DIAG) IV ONE (18:23)
[2017-05-27 23:16] VITALS: BP 103/63; PULSE 60; RESP 18; O2SAT 98
[2017-05-28 06:20] VITALS: BP 108/64; PULSE 74; RESP 18; O2SAT 97
[2017-05-28 07:10] VITALS: BP 132/67; PULSE 72; RESP 16; TEMP 97.8; O2SAT 99
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
--- NOTE | 2017-05-28 09:21 | EKG ---
Date Performed: 05/27/2017 Time Performed: 13:11:49 PTAGE: 27 years EKG: Sinus rhythm NONSPECIFIC ST & T-WAVE ABNORMALITY BORDERLINE ECG INTERPRETATION BASED ON A DEFAULT AGE OF 42 YEARS NO PREVIOUS TRACING DOCTOR: Ismael Gimenez Interpretating Date/Time 05/28/2017 09:08:31
[2017-05-28 09:31] VITALS: BP 110/78; TEMP 97.8
== END 2017-05-28 09:46 | disposition home or self-care (01) ==
LOC: NEPE 12:16 → NEPD 05-28 09:46
DX: F43.20 Adjustment disorder, unspecified (principal); F12.10 Cannabis abuse, uncomplicated
CPT/HCPCS: 74177; 80053; 80307; 81001; 83690; 84702; 84703; 85025; 87086; 93005; 96360; 96361; 99285; J7030; Q9963; Q9967

== ENCOUNTER 2017-05-29 23:40 | Emergency (ER) | payer OTHER ==
[~2017-05-29] VITALS: Ht 157.5 cm; Wt 62.3 kg
[~2017-05-29 23:40] MED LIST changes: +MACR100C2 PO
[2017-05-29 23:44] VITALS: BP 135/79; PULSE 122; RESP 20; TEMP 99.2
[2017-05-30] MEDS ORDERED: LORazepam 2 MG/ML VIAL IM ONE
[2017-05-30] MEDS ORDERED: HALOPERIDOL LACTATE 5 MG/ML AMP IM ONE
--- NOTE | 2017-05-30 00:58 | PD ---
HPI . Abdominal pain Chief Complaint: Abdominal Pain Time Seen by Provider: 23:53 Travel History International Travel<30 days: No Contact w/Intl Traveler<30days: No Traveled to known affect area: No History of Present Illness HPI This patient presents with a chief complaint of lower abdominal pain. She states that she has ovarian cancer and that someone needs to just cut it out. She states that she does not take anything for pain. She states that she does not believe in chemicals. She states that she is supposed to be seen at the [facility] in the near future to have this mass removed. This patient has a history of psychosis and is an extremely poor historian. PFSH Past Medical History Anxiety: Yes Depression: Yes Cancer: Yes (OVARiAN CA ) Cardiovascular Problems: Yes (HTN) Diminished Hearing: No Psychiatric: Yes (PSYCHOSIS) Reproductive: Yes (ovarian cysts) Schizophrenia: Yes ?: Unknown : 1 Para: 1 Miscarriage: 1 : 0 Ovarian Cysts: Yes (X2) Past Surgical History Gynecologic Surgery: Yes (SURGERIES , RIGHT AND LEFT OVARIAN CYST REMOVALS) Social History Alcohol Use: Yes (occassional ) Tobacco Use: Yes (5 CIGARRETTES PER DAY) Substance Use: No Allergies-Medications (Allergen,Severity, Reaction): Coded Allergies: latex (Unverified Allergy, Severe, Hives, 05/29/17) kiwi (Unverified Adverse Reaction, Severe, Nausea/Vomiting, 05/29/17) NAUSEA VOMITING AND DIARRHEA PER PT 11/25 Reported Meds & Prescriptions Reported Meds & Active Scripts Active Macrobid (Nitrofurantoin Monoh/Nitrofur Macro) 100 Mg Cap 100 Mg PO BID 7 Days Reported Abilify (Aripiprazole) 10 Mg Tab 5 Mg PO DAILY Review of Systems ROS Limitations: Poor Historian Except as stated in HPI: all other systems reviewed are Neg General / Constitutional: No: Fever, Chills Genitourinary: Positive: Pelvic Pain Musculoskeletal: Positive: Pain (low back pain) Psychiatric: Positive: Disorder of Thought, No: Substance Abuse Physical Exam Narrative GENERAL: Extremely labile going from smiling to crying and back to smiling in just a couple minutes. SKIN: Warm and dry. HEAD: Atraumatic. Normocephalic. EYES: Pupils equal and round. Extraocular movements are intact. ENT: No nasal bleeding or discharge. Mucous membranes pink and moist. NECK: Trachea midline. Neck is supple. CARDIOVASCULAR: Regular rate and rhythm. RESPIRATORY: No accessory muscle use. GASTROINTESTINAL: Abdomen soft. Lower abdominal mass. The mass is tender to palpation. MUSCULOSKELETAL: No obvious deformities. No edema. NEUROLOGICAL: Awake and alert. No obvious cranial nerve deficits. Motor grossly within normal limits. Normal speech. PSYCHIATRIC: In appropriate mood and affect. Judgment does not appear to be normal. Data Data Last Documented VS Vital Signs Date Time Temp Pulse Resp B/P Pulse Ox O2 Delivery O2 Flow Rate FiO2 05/29/17 23:44 99.2 122 20 135/79 Orders Urinalysis - C+S If Indicated (05/29/17 23:53) Ua Includes Microscopic (05/29/17 23:53) Ed Urine Pregnancytest Poc (05/29/17 23:53) Lorazepam Inj (Ativan Inj) (05/30/17 00:00) Haloperidol Inj (Haldol Inj) (05/30/17 00:00) Ceftriaxone Inj (Rocephin Inj) (05/30/17 01:00) Lidocaine Pf 1% Inj (Xylocaine-Mpf 1% In (05/30/17 01:00) Cath For Specimen (05/30/17 00:58) Labs Laboratory Tests Test 05/30/17 02:10 Urine Color YELLOW Urine Turbidity HAZY Urine pH 6.0 Urine Specific [place] 1.029 Urine Protein 30 mg/dL Urine Glucose (UA) NEG mg/dL Urine Ketones TRACE mg/dL Urine Occult Blood LARGE Urine Nitrite NEG Urine Bilirubin NEG Urine Urobilinogen 4.0 MG/DL Urine Leukocyte Esterase TRACE Urine RBC 2 /hpf Urine WBC 4 /hpf Urine Squamous Epithelial 4 /hpf Cells Urine Mucus MANY /lpf Microscopic Urinalysis Comment CATH-CULT NOT IND MDM Medical Decision Making Medical Screen Exam Complete: Yes Emergency Medical Condition: Yes Medical Record Reviewed: Yes (this patient has been evaluated here in the recent past for similar complaints. She has a known ovarian mass. The mass has not yet been evaluated histologically.) Differential Diagnosis Differential diagnosis of pelvic pain includes but is not limited to UTI, PID, ectopic , spontaneous AB, constipation, viral illness Narrative Course This patient presents with recurrent pelvic pain. She has a known ovarian mass. Her evaluation the ovarian mass is incomplete at this time. The patient was recently seen here for a urinary tract infection but has not taken her Macrobid. She will be given a dose of Rocephin here. UA and hCG are pending. The patient is extremely labile and intermittently agitated. She has been given Ativan and Haldol. The patient has been sound asleep since receiving Ativan and Haldol. She has not yet given us a urine sample. Her UA appears more contaminated than anything. She has had a dose of Rocephin IM. I do not feel that she needs any other antibiotics as an outpatient. She will be discharged home with instructions to follow-up with the [facility] [employer] [employer] doctor at the [facility]. Diagnosis Primary Impression: Ovarian mass Additional Impression: Psychosis Qualified Code: F29 - Psychosis, unspecified psychosis type Additional Instructions: Follow up at the [facility] for further evaluation as scheduled Disposition: 01 DISCHARGE HOME Condition: Stable Alesha Lozano MD May 30, 2017 00:58
[2017-05-30] MEDS ORDERED: LIDOCAINE HCL 1% PF 30 ML VIAL XX ONE (01:00)
[2017-05-30 02:57] LABS: BLOOD, URINE LARGE (NEG); GLUCOSE,URINE NEG (NEG); KETONE, URINE TRACE mg/dL (NEG); MUCUS URINE MANY /lpf (OCC); NITRITE,URINE NEG (NEG); SQUAMOUS EPITHELIAL CELL URINE 4 /hpf (0-5); URINE COLOR YELLOW (YELLW/STRAW)
[2017-05-30 02:58] LABS: COMMENT (UR) CATH-CULT NOT IND; CULTURE IF INDICATED CATH CULTURE NOT IND
== END 2017-05-30 07:48 | disposition home or self-care (01) ==
LOC: NEPC 23:40
DX: R10.30 Lower abdominal pain, unspecified (principal); R19.09 Other intra-abdominal and pelvic swelling, mass and lump; F29 Unspecified psychosis not due to a substance or known physiological condition; I10 Essential (primary) hypertension; F17.210 Nicotine dependence, cigarettes, uncomplicated
CPT/HCPCS: 81001; 84703; 96372; 99284; J0696; J1630; J2060; P9612

== ENCOUNTER 2017-05-30 10:57 | Emergency (ER) | payer OTHER ==
[2017-05-30 11:05] VITALS: BP 104/60; PULSE 80; RESP 15; TEMP 98.3; O2SAT 99
--- NOTE | 2017-05-30 11:34 | PD ---
HPI Chief Complaint: Medical Clearance Time Seen by Provider: 11:29 Travel History International Travel<30 days: No Contact w/Intl Traveler<30days: No Traveled to known affect area: No History of Present Illness HPI 27 YO F with PMH of pelvic mass presents to the ED for evaluation of "I'm sleepy , I don't have anywhere to go. I have a [facility]. I have hypertension. It's hot outside. " The patient is sleeping when I enter the room. She rouses easily to voice. I repeatedly ask her the nature of her medical emergency but she refuses to answer my question. She is lying on her belly and refuses to reposition herself for the physical exam. PFSH Past Medical History Anxiety: Yes Depression: Yes Cancer: Yes (OVARiAN CA ) Cardiovascular Problems: Yes (HTN) Diminished Hearing: No Psychiatric: Yes (PSYCHOSIS) Reproductive: Yes (ovarian cysts) Schizophrenia: Yes : 1 Para: 1 Miscarriage: 1 : 0 Ovarian Cysts: Yes (X2) Past Surgical History Gynecologic Surgery: Yes (SURGERIES , RIGHT AND LEFT OVARIAN CYST REMOVALS) Social History Alcohol Use: Yes (occassional ) Tobacco Use: Yes (5 CIGARRETTES PER DAY) Substance Use: No Allergies-Medications (Allergen,Severity, Reaction): Coded Allergies: latex (Unverified Allergy, Severe, Hives, 05/29/17) kiwi (Unverified Adverse Reaction, Severe, Nausea/Vomiting, 05/29/17) NAUSEA VOMITING AND DIARRHEA PER PT 11/25 Reported Meds & Prescriptions Reported Meds & Active Scripts Active Macrobid (Nitrofurantoin Monoh/Nitrofur Macro) 100 Mg Cap 100 Mg PO BID 7 Days Reported Abilify (Aripiprazole) 10 Mg Tab 5 Mg PO DAILY Review of Systems ROS Limitations: Uncooperative Except as stated in HPI: all other systems reviewed are Neg Physical Exam Narrative GENERAL: Well-nourished, well-developed, non toxic appearing AA female. Sleeping , rouses easily to voice. SKIN: Warm and dry. HEAD: Normocephalic. EYES: No scleral icterus. No injection or drainage. NECK: No JVD. CARDIOVASCULAR: Unable to perform RESPIRATORY: Breath sounds equal bilaterally. No accessory muscle use. GASTROINTESTINAL: Unable to perform MUSCULOSKELETAL: No cyanosis, or edema. Walks with a normal gait. BACK: No obvious deformity. Data Data Last Documented VS Vital Signs Date Time Temp Pulse Resp B/P Pulse Ox O2 Delivery O2 Flow Rate FiO2 05/30/17 11:05 98.3 80 15 104/60 99 [facility] Medical Decision Making Medical Screen Exam Complete: Yes Emergency Medical Condition: Yes Differential Diagnosis malingering versus noncompliance versus adjustment disorder versus pelvic mass versus other Narrative Course 27 YO F with PMH of pelvic mass presents to the ED for evaluation of "I'm sleepy , I don't have anywhere to go. I have a pelvic mass that will be taken out by the [facility] next week. I have hypertension. It's hot outside. " The patient is sleeping when I enter the room. She rouses easily to voice. I repeatedly ask her the nature of her medical emergency but she refuses to answer my question, refuses to position herself for a full exam. Vitals reviewed. Limited physical exam reveals nontoxic appearing female in no acute distress. Review of the patient's record reveals she's been seen 7 times this month alone. According to the record review the patient was diagnosed with a pelvic mass in December. She presented to ED on 05/19, had an ultrasound that showed a large left ovarian mass. She was provided with outpatient follow-up at that time. She presented with the complaint of abdominal pain on 05/22 and was again provided outpatient resources. On 05/27 she again presented to the ED and told the provider that she had follow-up with the [facility] on 06/05. A CT of the abdomen was performed which showed a complex cystic ovarian tumor. The patient was also provided with Macrobid for UTI. On 05/28 the patient was evaluated by the psychiatrist, deemed safe for discharge with outpatient follow- up at [facility]. On 05/29 the patient was seen in the ED, very distraught, administered a sedative and treated for the UTI since she was noncompliant with Macrobid. She was discharged this morning at 7:47am with a bus pass [facility] I feel the source of her problem today is psychosocial and not emergently medical. She is stable and discharged with instructions to follow-up with the [facility] as planned. Diagnosis Primary Impression: Malingering Referrals: [facility] Additional Instructions: [facility]05 as planned. Follow up with [facility] for outpatient psychiatric treatment as instructed at previous discharge. Return to the ED for any urgent or emergent medical condition. Disposition: 01 DISCHARGE HOME Condition: Stable Jaquelin Fitzpatrick May 30, 2017 11:34
== END 2017-05-30 12:33 | disposition home or self-care (01) ==
LOC: NEPC 10:57
DX: Z76.5 Malingerer [conscious simulation] (principal); R19.00 Intra-abdominal and pelvic swelling, mass and lump, unspecified site; I10 Essential (primary) hypertension; Z72.0 Tobacco use; Z86.59 Personal history of other mental and behavioral disorders; Z85.43 Personal history of malignant neoplasm of ovary
CPT/HCPCS: 99281

== ENCOUNTER 2017-06-02 14:33 | Inpatient (IN) | payer OTHER ==
[~2017-06-02] VITALS: Ht 154.9 cm; Wt 57.9 kg
[2017-06-02 16:00] VITALS: BP 157/96; PULSE 85; RESP 20; O2SAT 97
[2017-06-02 16:29] LABS: AUTOMATED NEUTROPHIL # 3.3 TH/MM3 (1.8-7.7); BASOPHIL # 0.1 TH/MM3 (0-0.2); BASOPHIL % 0.7 % (0.0-2.0); EOSINOPHIL # 0.1 TH/MM3 (0-0.4); EOSINOPHIL % 1.2 % (0.0-4.0); HEMATOCRIT 37.3 % (35.0-46.0); HEMO FLAGS DIFF FINAL; LYMPH % 36.5 % (9.0-44.0); LYMPHOCYTE # 2.6 TH/MM3 (1.0-4.8); MEAN CELL VOLUME 85.7 FL (80.0-100.0); MEAN CORPUSCULAR HEMOGLOBIN 28.1 PG (27.0-34.0); MEAN CORPUSCULAR HGB CONC 32.8 % (32.0-36.0); MONO % 14.1 % (0.0-8.0); NEUT % 47.5 % (16.0-70.0); PLATELET COUNT 396 TH/MM3 (150-450); RED BLOOD COUNT 4.36 MIL/MM3 (4.00-5.30); RED CELL DISTRIBUTION WIDTH 14.5 % (11.6-17.2)
[2017-06-02 17:00] LABS: ANION GAP 8 MEQ/L (5-15); AST (GOT) 13 U/L (15-37); BICARBONATE 29.1 MEQ/L (21.0-32.0); BLOOD UREA NITROGEN 9 MG/DL (7-18); CHLORIDE 103 MEQ/L (98-107); GLOMERULAR FILTRATION RATE 87 ML/MIN (>89); POTASSIUM 3.4 MEQ/L (3.5-5.1); SODIUM (NA) 140 MEQ/L (136-145)
[2017-06-02 17:03] LABS: ALKALINE PHOSPHATASE 46 U/L (45-117); ALT (GPT) 19 U/L (10-53); TOTAL BILIRUBIN ADULT 0.3 MG/DL (0.2-1.0)
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
[2017-06-02 17:11] LABS: ALCOHOL LESS THAN 3 MG/DL (0-5)
[2017-06-02] MEDS: NICOTINE 21 MG/24 HR PATCH T-DERMAL SCH (20:45)
[2017-06-02] MEDS ORDERED: ALUMINUM/MAGNESIUM/SIMETH 30 ML CUP PO PRN (20:45)
[2017-06-02] MEDS ORDERED: LORazepam 0.5 MG TAB PO PRN (20:45)
[2017-06-02] MEDS ORDERED: LORazepam 2 MG/ML VIAL IM PRN ×2 (20:45)
[2017-06-02] MEDS ORDERED: NITROFURANTOIN MONOHYD MACROCR 100 MG CAP PO SCH (21:00)
[2017-06-02] MEDS ORDERED: ARIPiprazole 5 MG TAB PO SCH (21:15)
[2017-06-02 22:00] VITALS: BP 116/86; PULSE 56; RESP 18; O2SAT 98
[2017-06-03 01:30] VITALS: BP 130/93; PULSE 80; RESP 18; TEMP 97.8; O2SAT 98
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
[2017-06-03] MEDS ORDERED: BENZTROPINE MESYLATE 2 MG/2 ML VIAL IM PRN (09:00)
[2017-06-03] MEDS: NICOTINE 21 MG/24 HR PATCH T-DERMAL SCH (09:00)
[2017-06-03] MEDS ORDERED: BENZTROPINE MESYLATE 1 MG TAB PO PRN (09:00)
[2017-06-03] MEDS: REMOVE OLD NICODERM (NICOTINE) PATCH T-DERMAL SCH ×2 (09:00→21:00)
[2017-06-03] MEDS ORDERED: diphenhydrAMINE HCL 50 MG CAP PO PRN (09:00)
[2017-06-03] MEDS: MAGNESIUM HYDROXIDE SUSP 30 ML CUP PO PRN ×2 (12:31→21:57)
[2017-06-03] MEDS ORDERED: POTASSIUM CHLORIDE 10 MEQ CONTROLLED RELEASE TAB PO ONE (16:30)
[2017-06-03 17:45] LABS: ANION GAP 7 MEQ/L (5-15); BLOOD UREA NITROGEN 9 MG/DL (7-18); CHLORIDE 104 MEQ/L (98-107); GLOMERULAR FILTRATION RATE 92 ML/MIN (>89); POTASSIUM 3.5 MEQ/L (3.5-5.1); SODIUM (NA) 139 MEQ/L (136-145)
[2017-06-03 17:48] LABS: HDL CHOLESTEROL 44.6 MG/DL (40.0-60.0); LDL CHOLESTEROL 80 MG/DL (0-99)
[2017-06-03 22:24] LABS: HEMOGLOBIN A1a 0.8 %; HEMOGLOBIN A1b 0.9 %; HEMOGLOBIN Ao 86.3 %; HEMOGLOBIN F 0.8 %; HEMOGLOBIN LA1C 1.8 %; HEMOGLOBIN P3 3.6 %
[2017-06-04 05:59] VITALS: BP 119/56; PULSE 90; RESP 17; TEMP 97.5; O2SAT 100
[2017-06-04] MEDS ORDERED: ARIPiprazole 10 MG TAB PO SCH (09:00)
[2017-06-04] MEDS: NICOTINE 21 MG/24 HR PATCH T-DERMAL SCH (09:08)
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
[2017-06-04 10:26] LABS: BICARBONATE 28.3 MEQ/L (21.0-32.0); MAGNESIUM 2.7 MG/DL (1.5-2.5); POTASSIUM 4.5 MEQ/L (3.5-5.1)
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
[2017-06-04] MEDS: ACETAMINOPHEN 325 MG TAB PO PRN ×2 (17:00→20:08)
[2017-06-04 18:05] VITALS: BP 123/83; PULSE 88; RESP 18; TEMP 97.7; O2SAT 99
[2017-06-04] MEDS: DOCUSATE SODIUM 100 MG CAP PO SCH (20:08)
[2017-06-04] MEDS: REMOVE OLD NICODERM (NICOTINE) PATCH T-DERMAL SCH (20:47)
[2017-06-05 05:53] VITALS: BP 125/73; PULSE 80; RESP 18; TEMP 97.8; O2SAT 99
[2017-06-05] MEDS: DOCUSATE SODIUM 100 MG CAP PO SCH ×2 (08:00→20:52)
[2017-06-05] MEDS: NICOTINE 21 MG/24 HR PATCH T-DERMAL SCH (09:00)
[2017-06-05] MEDS ORDERED: ARIPiprazole 10 MG TAB PO SCH (09:00)
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
[2017-06-05] MEDS: ACETAMINOPHEN 325 MG TAB PO PRN (12:49)
[2017-06-05] MEDS: LORazepam 1 MG TAB PO PRN (17:10)
[2017-06-05 17:51] VITALS: BP 147/77; PULSE 87; RESP 19; TEMP 98.3; O2SAT 100
[2017-06-05] MEDS: REMOVE OLD NICODERM (NICOTINE) PATCH T-DERMAL SCH (20:52)
[2017-06-06 06:01] VITALS: BP 115/60; PULSE 84; RESP 18; TEMP 97.6; O2SAT 98
[2017-06-06] MEDS: DOCUSATE SODIUM 100 MG CAP PO SCH ×2 (08:15→19:26)
[2017-06-06] MEDS: NICOTINE 21 MG/24 HR PATCH T-DERMAL SCH (08:15)
[2017-06-06] MEDS: ARIPiprazole 15 MG TAB PO SCH (08:57)
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
[2017-06-06] MEDS: MAGNESIUM HYDROXIDE SUSP 30 ML CUP PO PRN (13:31)
[2017-06-06 18:39] VITALS: BP 118/72; PULSE 89; RESP 18; TEMP 97.5; O2SAT 99
[2017-06-06] MEDS: ACETAMINOPHEN 325 MG TAB PO PRN (19:25)
[2017-06-06] MEDS: LORazepam 1 MG TAB PO PRN (19:26)
[2017-06-06] MEDS: REMOVE OLD NICODERM (NICOTINE) PATCH T-DERMAL SCH (21:00)
[2017-06-07 06:06] VITALS: BP 115/58; PULSE 66; RESP 18; TEMP 98.7; O2SAT 98
[2017-06-07] MEDS: NICOTINE 21 MG/24 HR PATCH T-DERMAL SCH (08:15)
[2017-06-07] MEDS: ARIPiprazole 15 MG TAB PO SCH (08:15)
[2017-06-07] MEDS: DOCUSATE SODIUM 100 MG CAP PO SCH ×2 (08:15→22:18)
[2017-06-07] MEDS: REMOVE OLD NICODERM (NICOTINE) PATCH T-DERMAL SCH (08:16)
[2017-06-07] MEDS: MAGNESIUM HYDROXIDE SUSP 30 ML CUP PO PRN (08:24)
--- NOTE | 2017-06-07 11:10 | HHI.PYPN ---
Subjective Remarks Pt seen and discussed with staff. She has been compliant with medications and denies side effects. No behavioral problems on unit today. She has been religiously preoccupied She continues to be internally stimulated with prominent bizarre paranoid delusions. She c/o of constipation and reports that she has not had BM Objective Alert: Yes [place]: Person, Place, Date Mood: Anxious Affect: Labile Memory Intact: Comment (fair) Hallucinations: Auditory (internally stimulated) Delusions: Yes Delusion Type: Paranoid (bizarre) Suicidal: Ideation (No SI) Homicidal: Ideation (denies HI) Insight/Judgment poor Vitals/IOs Vital Signs Date Time Temp Pulse Resp B/P (MAP) Pulse Ox O2 Delivery O2 Flow Rate FiO2 06/07/17 06:06 98.7 66 18 115/58 (77) 98 Assessment & Plan Problem List: (1) Psychosis ICD Codes: F29 - Unspecified psychosis not due to a substance or known physiological condition Status: Acute (2) Use of cannabis ICD Codes: F12.90 - Cannabis use, unspecified, uncomplicated Status: Acute Assessment & Plan Continue current Abilify titration. Estimated LOS: days Justification for Cont. Inpt. impairments in reality construction Request HC Surrog/Guard Advoc?: No Problem Qualifiers (1) Psychosis: Qualified Codes: F25.0 - Schizoaffective disorder, bipolar type Mariola Mcdermott MD Jun 07, 2017 11:10
[2017-06-07] MEDS ORDERED: POLYETHYLENE GLYCOL 17 GM PKG PO ONE (11:30)
[2017-06-07 16:22] VITALS: BP 131/85; PULSE 70; RESP 18; TEMP 97.9; O2SAT 100
[2017-06-08 06:04] VITALS: BP 109/58; PULSE 93; RESP 17; TEMP 97.8; O2SAT 100
[2017-06-08] MEDS: DOCUSATE SODIUM 100 MG CAP PO SCH ×2 (08:34→21:56)
[2017-06-08] MEDS: ARIPiprazole 15 MG TAB PO SCH (08:35)
[2017-06-08] MEDS: NICOTINE 21 MG/24 HR PATCH T-DERMAL SCH (08:36)
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
[2017-06-08] MEDS ORDERED: ABILIFY MAINTENA 400 MG IM ONE (16:00)
[2017-06-08 17:07] VITALS: BP 124/81; PULSE 80; RESP 18; TEMP 98.1
[2017-06-08] MEDS: ACETAMINOPHEN 325 MG TAB PO PRN (17:15)
[2017-06-08] MEDS: REMOVE OLD NICODERM (NICOTINE) PATCH T-DERMAL SCH (21:00)
[2017-06-09 06:23] VITALS: BP 116/60; PULSE 79; RESP 16; TEMP 97.8; O2SAT 100
[2017-06-09] MEDS: DOCUSATE SODIUM 100 MG CAP PO SCH (08:42)
[2017-06-09] MEDS: ARIPiprazole 15 MG TAB PO SCH (08:42)
[2017-06-09] MEDS: NICOTINE 21 MG/24 HR PATCH T-DERMAL SCH (08:45)
--- NOTE | 2017-06-09 10:54 | PD.TTN ---
Patient Problems 1. Discharge planning 2. Medication compliance 3. Knowledge deficit 4. Lack of coping skills Progress Toward Goals Provider Present: Dr. Fady Landon Provider Input: Dr. Landon reported the patient will be discharged son and requested that this counselor plan for patient's disposition. Nurse(s) Present: Oz Ospina Nurse(s) Input: Nurse Oz reported the patient remains medication compliant and accepted her long-term injection. Oz reported the patient was seclusive to her room last evening, denied both homicidal and suicidal ideations, plan, and inent. Psychiatric Counselors Present: KEENAN Gifford Psych Therapist Input: Counselor reported the patient remains paranoid. She did accept Abilify Maintaina injection yesterday. Counselor reported I will clarify patient's disposition in an effort to discharge Thursday or . Group Spec/RT/OT/BERNARDO Present: TOVA Patel Group Spec/RT/OT/BERNARDO Input: Danni reported the patient is participating in recreational groups. Discharge Plan [facility] Documentation Scribe: KEENAN Gifford Date Resolved: Jun 09, 2017 Adalgisa Zheng Jun 09, 2017 10:54
[2017-06-09] MEDS ORDERED: DOCU1CAP39 PO (12:45)
[2017-06-09] MEDS ORDERED: ARIP10IN IM (12:45)
[2017-06-09] MEDS ORDERED: ARIP1TAB7 PO (12:45)
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
== END 2017-06-09 15:50 | disposition home or self-care (01) | DRG 885 ==
LOC: NEPJ 14:33 → NEDA 20:47 → H270 06-03 01:30 → H260 06-07 13:30
PROVIDERS: ADMIT Psychiatry & Neurology Psychiatry; ATTEND Psychiatry & Neurology Psychiatry
DX: F25.0 Schizoaffective disorder, bipolar type (principal); R45.851 Suicidal ideations; T76.21XA Adult sexual abuse, suspected, initial encounter; F22 Delusional disorders; F29 Unspecified psychosis not due to a substance or known physiological condition; F12.90 Cannabis use, unspecified, uncomplicated; F43.10 Post-traumatic stress disorder, unspecified; F43.20 Adjustment disorder, unspecified; I10 Essential (primary) hypertension; K59.00 Constipation, unspecified; G89.29 Other chronic pain; F17.210 Nicotine dependence, cigarettes, uncomplicated; Z85.43 Personal history of malignant neoplasm of ovary
CPT/HCPCS: 80048; 80053; 80061; 80307; 83036; 83735; 84703; 85025; 86304; J2060

== ENCOUNTER 2017-06-15 20:35 | Emergency (ER) | payer OTHER ==
[~2017-06-15] VITALS: Ht 157.5 cm; Wt 60.5 kg
[~2017-06-15 20:35] MED LIST changes: +ARIP10IN IM; -ARIP1TAB5 PO; +ARIP1TAB7 PO; +DOCU1CAP39 PO; -MACR100C2 PO
[2017-06-15 20:37] VITALS: BP 135/89; PULSE 73; RESP 16; TEMP 97.7; O2SAT 100
[2017-06-15 22:38] LABS: AUTOMATED NEUTROPHIL # 1.8 TH/MM3 (1.8-7.7); BASOPHIL % 0.6 % (0.0-2.0); EOSINOPHIL # 0.1 TH/MM3 (0-0.4); EOSINOPHIL % 1.9 % (0.0-4.0); HEMATOCRIT 33.6 % (35.0-46.0); HEMO FLAGS DIFF FINAL; LYMPH % 48.3 % (9.0-44.0); LYMPHOCYTE # 2.3 TH/MM3 (1.0-4.8); MEAN CELL VOLUME 86.4 FL (80.0-100.0); MEAN CORPUSCULAR HEMOGLOBIN 27.8 PG (27.0-34.0); MEAN CORPUSCULAR HGB CONC 32.1 % (32.0-36.0); MONO % 11.5 % (0.0-8.0); NEUT % 37.7 % (16.0-70.0); PLATELET COUNT 289 TH/MM3 (150-450); RED BLOOD COUNT 3.89 MIL/MM3 (4.00-5.30); RED CELL DISTRIBUTION WIDTH 14.3 % (11.6-17.2); WHITE BLOOD COUNT 4.7 TH/MM3 (4.0-11.0)
[2017-06-15 23:00] LABS: ANION GAP 9 MEQ/L (5-15); BICARBONATE 24.1 MEQ/L (21.0-32.0); BLOOD UREA NITROGEN 10 MG/DL (7-18); CHLORIDE 107 MEQ/L (98-107); GLOMERULAR FILTRATION RATE 119 ML/MIN (>89); POTASSIUM 3.4 MEQ/L (3.5-5.1); SODIUM (NA) 140 MEQ/L (136-145)
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
[2017-06-15 23:06] LABS: ALCOHOL LESS THAN 3 MG/DL (0-5)
[2017-06-16 07:00] VITALS: BP 127/74; PULSE 68; RESP 16; O2SAT 99
--- NOTE | 2017-06-16 10:28 | PD ---
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 Patient noted to have been given a diagnosis of schizoaffective disorder by Dr. Yue banks, and May. She is currently homeless and was not doing well and her recent living situation. She plans to go to [place] and has been set up with a appointment at the [facility] for tomorrow. She was noted by the emergency room doctor to speak in a somewhat tangential manner and this physician agrees. While the patient does not have outright psychotic symptoms at this time or loose associations, she does speak in a tangential and circumstantial fashion. She repeatedly denies any suicidal or homicidal ideation, plan or intent. This physician notes she has been given oral Abilify and Abilify Maintena in the recent past so she continues to have medication on board. PFSH Past Medical History Arthritis: Yes Anxiety: Yes Depression: Yes Cancer: Yes (ovarian cancer pt pt) Diminished Hearing: No Genitourinary: Yes (U.T.I.'S) Headaches: Yes (per pt she has migraines frequently) Hypertension: Yes Musculoskeletal: Yes (bulging disc at C6) Neurologic: No Psychiatric: Yes (Schizoaffective disorder, bipolar type, acute exacerbation) Reproductive: Yes (ovarian cysts/left adnexal ovarian mass) Respiratory: No Schizophrenia: Yes ?: Not LMP: 05/27/2017 Menopausal: No : 4 Para: 3 Miscarriage: 1 : 0 Ovarian Cysts: Yes Past Surgical History Gynecologic Surgery: Yes (ovarian cysts) Other Surgery: Yes (OVARIAN CYST REMOVAL BILATERALLY) Psychiatric History Psychiatric History Hx Psychiatric Treatment: Patient was here at [facility] on 02/04/16 to 02/08/16. Patient also reports being in the [facility] in 2012 for a week. Patient sees a therapist at the [facility] which is where patient was when she was [facility] Acted to [facility]. History of Inpatient Treatment: Yes Guns or firearms in home: No Social History Hx Alcohol Use: Yes (occasional/1 drink/4 days ago) Hx Tobacco Use: Yes Hx Substance Use: Yes (marajuana daily, 3 cigarettes/day; ETOH occasional) Substance Use Type: Alcohol, Marijuana, Nicotine/Cigarettes Other Substances Used: last ETOH 4 days ago Hx of Substance Use Treatment: No Allergies-Medications (Allergen,Severity, Reaction): Coded Allergies: latex (Verified Allergy, Severe, Hives, 06/15/17) kiwi (Verified Adverse Reaction, Severe, Nausea/Vomiting, 06/15/17) NAUSEA VOMITING AND DIARRHEA PER PT 11/25 Reported Meds & Prescriptions Reported Meds & Active Scripts Active Dok (Docusate Sodium) 100 Mg Cap 100 Mg PO BID 15 Days Stop this med if you develop loose stools. Abilify Maintena Dual Chamber Inj (Aripiprazole) 400 Mg Inj 400 Mg IM Q28D This dose of Abilify Maintena due on 07/06/2017. Abilify (Aripiprazole) 20 Mg Tab 20 Mg PO DAILY 14 Days Be sure to get your next Abilify Maintena injection. Exam Alert: Yes [place]: Person, Place, Date, Situation Mood: Calm Affect: Restricted Speech: Clear Eye Contact: Indirect Memory Intact: Immediate, Recent, Remote Insight/Judgement Adequate MDM Medical Decision Making Medical Record Reviewed: Yes Assessment/Plan Patient seen and interviewed at bedside with Casey Vaca environmental remediation specialist and chart reviewed. This physician feels patient likely has a thought disorder but appears to be much improved from the time she was in the hospital. She is denying any suicidal or homicidal ideation, plan or intent and she is verbally melissa for safety. She is competent to do so. She does have a plan to care for herself and is likely to be admitted to a [facility] facility tomorrow or the near future. Patient also reports she has a $1600 payment coming to her. In this physician's opinion she does not meet criteria for involuntary psychiatric hospitalization and she would like to leave. Orders Orders Complete Blood Count With Diff (06/15/17 21:20) Basic Metabolic Panel (Bmp) (06/15/17 21:20) Psych Screen (06/15/17 21:20) Alcohol (Ethanol) (06/15/17 21:20) Diet Regular Basic (06/16/17 Breakfast) Results Vital Signs Date Time Temp Pulse Resp B/P (MAP) Pulse Ox O2 Delivery O2 Flow Rate FiO2 06/16/17 07:00 68 16 127/74 (91) 99 Room Air 06/15/17 20:37 97.7 73 16 135/89 (104) 100 Laboratory Tests Test 06/15/17 21:40 White Blood Count 4.7 Red Blood Count 3.89 Hemoglobin 10.8 Hematocrit 33.6 Mean Corpuscular Volume 86.4 Mean Corpuscular Hemoglobin 27.8 Mean Corpuscular Hemoglobin Concent 32.1 Red Cell Distribution Width 14.3 Platelet Count 289 Mean Platelet Volume 7.6 Neutrophils (%) (Auto) 37.7 Lymphocytes (%) (Auto) 48.3 Monocytes (%) (Auto) 11.5 Eosinophils (%) (Auto) 1.9 Basophils (%) (Auto) 0.6 Neutrophils # (Auto) 1.8 Lymphocytes # (Auto) 2.3 Monocytes # (Auto) 0.5 Eosinophils # (Auto) 0.1 Basophils # (Auto) 0.0 CBC Comment DIFF FINAL Differential Comment Blood Urea Nitrogen 10 Creatinine 0.72 Random Glucose 79 Calcium Level 8.6 Sodium Level 140 Potassium Level 3.4 Chloride Level 107 Carbon Dioxide Level 24.1 Anion Gap 9 Estimat Glomerular Filtration Rate 119 Ethyl Alcohol Level LESS THAN 3 Diagnosis Primary Impression: Schizoaffective disorder, depressive type with good prognostic features Fernando Sy MD Jun 16, 2017 10:28
== END 2017-06-16 11:07 | disposition home or self-care (01) ==
LOC: NEPD 20:35
DX: F25.1 Schizoaffective disorder, depressive type (principal); F17.210 Nicotine dependence, cigarettes, uncomplicated
CPT/HCPCS: 80048; 80307; 85025; 99283

== ENCOUNTER 2017-10-26 20:53 | Emergency (ER) | payer SELFPAY ==
[~2017-10-26] VITALS: Ht 157.5 cm; Wt 61.0 kg
[~2017-10-26 20:53] MED LIST changes: +ABIL20TA5 PO; -ARIP1TAB7 PO
[2017-10-26 20:57] VITALS: BP 118/77; PULSE 77; RESP 18; TEMP 98.2; O2SAT 99
--- NOTE | 2017-10-26 21:16 | PD ---
HPI Chief Complaint: Abdominal Pain Time Seen by Provider: 21:09 Travel History International Travel<30 days: No Contact w/Intl Traveler<30days: No Traveled to known affect area: No History of Present Illness HPI 27-year-old female presents to the emergency department by private transportation for complaint of lower abdominal pain since yesterday. Patient has had diarrhea with mucoid stool and streaks of blood dysuria frequency and urgency since 3 PM today. Patient denies fever chills. Patient's had nausea without vomiting. Patient denies prior similar symptoms. Patient rates pain as severe 7/10 in intensity. Patient is a one-time dose of ibuprofen yesterday. Patient denies history of inflammatory bowel disease. Last menses was one week ago and normal for her. Patient denies . Patient is 4 para 3 AB 1. Patient is taken any recent antibiotic. Patient denies dietary indiscretion well water ingestion or foreign travel. No other family members or coworkers or similar symptoms. Patient's had no recent respiratory illness. Patient denies any routine medication use prescription medication use at this time. Patient reports July she underwent elective left oophorectomy salpingectomy and has had numerous laparoscopic ovarian cystectomies. Patient denies any concerns or complaints. PFSH Past Medical History Narrative Medical Anxiety depression ovarian cyst left oophorectomy salpingectomy laparoscopic ovarian cystectomy cervical disc disease and tobacco use alcohol use substance use migraines UTIs arthritis; nursing notes reviewed Arthritis: Yes Anxiety: Yes Depression: Yes Cancer: Yes (ovarian cancer pt pt) Diminished Hearing: No Genitourinary: Yes (U.T.I.'S) Headaches: Yes (per pt she has migraines frequently) Hypertension: Yes Musculoskeletal: Yes (bulging disc at C6) Neurologic: No Psychiatric: Yes (Schizoaffective disorder, bipolar type, acute exacerbation) Reproductive: Yes (ovarian cysts/left adnexal ovarian mass) Respiratory: No Schizophrenia: Yes ?: Not LMP: 10-19-17 Menopausal: No : 4 Para: 3 Miscarriage: 1 : 0 Ovarian Cysts: Yes Past Surgical History Gynecologic Surgery: Yes (ovarian cysts) Other Surgery: Yes (OVARIAN CYST REMOVAL BILATERALLY) Social History Alcohol Use: Yes (occasional/1 drink/4 days ago) Tobacco Use: Yes Substance Use: Yes (marajuana daily, 3 cigarettes/day; ETOH occasional) Allergies-Medications (Allergen,Severity, Reaction): Coded Allergies: latex (Verified Allergy, Severe, Hives, 10/26/17) kiwi (Verified Adverse Reaction, Severe, Nausea/Vomiting, 10/26/17) NAUSEA VOMITING AND DIARRHEA PER PT 11/25 Reported Meds & Prescriptions Reported Meds & Active Scripts Active Dok (Docusate Sodium) 100 Mg Cap 100 Mg PO BID 15 Days Stop this med if you develop loose stools. Abilify Maintena Dual Chamber Inj (Aripiprazole) 400 Mg Inj 400 Mg IM Q28D This dose of Abilify Maintena due on 07/06/2017. Abilify (Aripiprazole) 20 Mg Tab 20 Mg PO DAILY 14 Days Be sure to get your next Abilify Maintena injection. Review of Systems Except as stated in HPI: all other systems reviewed are Neg General / Constitutional: No: Fever, Chills Eyes: No: Visual changes HENT: No: Headaches, Congestion, Neck Pain Cardiovascular: No: Chest Pain or Discomfort Respiratory: No: Shortness of Breath Gastrointestinal: Positive: Nausea, Diarrhea, Abdominal Pain, Hematochezia ( streaks of blood), No: Vomiting Genitourinary: Positive: Urgency, Frequency, Dysuria, No: Hematuria, Pelvic Pain, Flank Pain, Discharge, Vaginal Bleeding Musculoskeletal: No: Myalgias, Arthralgias Skin: No Rash Neurologic: No: Weakness Psychiatric: No: Anxiety Hematologic/Lymphatic: No: Easy Bruising Physical Exam Narrative GENERAL: Well-developed well-nourished female in no acute distress no respiratory distress SKIN: Warm and dry. HEAD: Normocephalic. EYES: No scleral icterus. No injection or drainage. NECK: Supple, trachea midline. No JVD or lymphadenopathy. CARDIOVASCULAR: Regular rate and rhythm without murmurs, gallops, or rubs. RESPIRATORY: Breath sounds equal bilaterally. No accessory muscle use. GASTROINTESTINAL: Abdomen soft, non-tender, left lower quadrant and suprapubic tenderness to direct palpation without guarding or rebound nondistended. Rectal exam: No fissure no prolapsed hemorrhoids normal sphincter tone no palpable mass mucus on exam glove is without gross blood and is negative. MUSCULOSKELETAL: No cyanosis, or edema. BACK: Nontender without obvious deformity. No CVA tenderness. Data Data Last Documented VS Vital Signs Date Time Temp Pulse Resp B/P (MAP) Pulse Ox O2 Delivery O2 Flow Rate FiO2 10/26/17 21:23 99 Room Air 10/26/17 20:57 98.2 77 18 118/77 (91) Orders Orders Complete Blood Count With Diff (10/26/17 21:09) Comprehensive Metabolic Panel (10/26/17 21:09) Lipase (10/26/17 21:09) Urinalysis - C+S If Indicated (10/26/17 21:09) Iv Access Insert/Monitor (10/26/17 21:09) Oximetry (10/26/17 21:09) Ed Urine Pregnancytest Poc (10/26/17 21:09) Urine Culture (10/26/17 21:26) Labs Laboratory Tests Test 10/26/17 21:26 White Blood Count 10.8 TH/MM3 Red Blood Count 4.40 MIL/MM3 Hemoglobin 12.4 GM/DL Hematocrit 37.9 % Mean Corpuscular Volume 86.2 FL Mean Corpuscular Hemoglobin 28.3 PG Mean Corpuscular Hemoglobin Concent 32.8 % Red Cell Distribution Width 13.6 % Platelet Count 335 TH/MM3 Mean Platelet Volume 8.5 FL Neutrophils (%) (Auto) 63.8 % Lymphocytes (%) (Auto) 20.2 % Monocytes (%) (Auto) 11.7 % Eosinophils (%) (Auto) 1.4 % Basophils (%) (Auto) 2.9 % Neutrophils # (Auto) 6.8 TH/MM3 Lymphocytes # (Auto) 2.2 TH/MM3 Monocytes # (Auto) 1.3 TH/MM3 Eosinophils # (Auto) 0.2 TH/MM3 Basophils # (Auto) 0.3 TH/MM3 CBC Comment DIFF FINAL Differential Comment Urine Color YELLOW Urine Turbidity CLOUDY Urine pH 6.0 Urine Specific [place] 1.024 Urine Protein NEG mg/dL Urine Glucose (UA) NEG mg/dL Urine Ketones NEG mg/dL Urine Occult Blood SMALL Urine Nitrite POS Urine Bilirubin NEG Urine Leukocyte Esterase MOD Urine RBC 10-14 /hpf Urine WBC INNUM /hpf Urine WBC Clumps FEW Urine Squamous Epithelial Cells 0-5 /hpf Urine Bacteria FEW /hpf Microscopic Urinalysis Comment CULTURE INDICATED Blood Urea Nitrogen 13 MG/DL Creatinine 0.86 MG/DL Random Glucose 85 MG/DL Total Protein 7.4 GM/DL Albumin 3.5 GM/DL Calcium Level 8.5 MG/DL Alkaline Phosphatase 51 U/L Aspartate Amino Transf (AST/SGOT) 13 U/L Alanine Aminotransferase (ALT/SGPT) 12 U/L Total Bilirubin 0.1 MG/DL Sodium Level 140 MEQ/L Potassium Level 3.6 MEQ/L Chloride Level 106 MEQ/L Carbon Dioxide Level 28.1 MEQ/L Anion Gap 6 MEQ/L Estimat Glomerular Filtration Rate 97 ML/MIN Lipase 108 U/L MDM Medical Decision Making Medical Screen Exam Complete: Yes Emergency Medical Condition: Yes Medical Record Reviewed: Yes Interpretation(s) Vital Signs Date Time Temp Pulse Resp B/P (MAP) Pulse Ox O2 Delivery O2 Flow Rate FiO2 10/26/17 21:23 99 Room Air 10/26/17 20:57 98.2 77 18 118/77 (91) 99 Differential Diagnosis Colitis inflammatory bowel disease serum membranous colitis UTI pyelonephritis partial bowel obstruction Narrative Course IV access obtained specimens collected and sent for resulting Patient with nausea given a liter of normal saline 30 mg of Toradol IV 1 g of Rocephin and Pyridium 100 mg by mouth Rectal exam is negative for blood There is no indication for radiographic imaging at this time therefore discharge patient with prescription for antibiotic Pyridium encouraged her to follow up with her primary care provider or return to the emergency department for any worsening of symptoms. [facility]pt Point of Care Internal Pos. & Neg. Controls: Passed Fecal Specimen Occult Blood: Negative Diagnosis Primary Impression: UTI (urinary tract infection) Referrals: Primary Care Physician 2 days Patient Instructions: General Instructions Departure Forms: Tests/Procedures, Work Release Special Instructions: no work x 1 day Additional Instructions: Increase fluid hydration Follow-up with primary care provider Complete course of antibiotic as prescribed Return to the emergency department for any concerns or change in condition Take Pyridium as needed for pain Use ibuprofen/Otrivin every 6-8 hours as needed for fever 100.4F or greater or for pain associated with inflammation Use acetaminophen/Tylenol as needed for fever 100.4F or greater Return to the emergency department for any concerns or change in condition No work times one day Med/Other Pt SpecificInfo: Prescription(s) given Scripts Ondansetron Odt (Zofran Odt) 4 Mg Tab 4 MG SL Q6HR Y for Nausea/Vomiting, #10 TAB 0 Refills Prov: Elizabeth Rodriguez MD 10/26/17 Phenazopyridine (Pyridium) 100 Mg Tab 100 MG PO Q8H Y for DYSURIA, #6 TAB 0 Refills Prov: Elizabeth Rodriguez MD 10/26/17 Sulfamethoxazole-Trimethoprim (Bactrim DS) 800-160 Mg Tab 1 TAB PO BID for Infection, #20 TAB 0 Refills Prov: Elizabeth Rodriguez MD 10/26/17 Disposition: 01 DISCHARGE HOME Condition: Stable Elizabeth Rodriguez MD Oct 26, 2017 21:16
[2017-10-26 21:23] VITALS: O2SAT 99
[2017-10-26 21:38] LABS: AUTOMATED NEUTROPHIL # 6.8 TH/MM3 (1.8-7.7); BASOPHIL # 0.3 TH/MM3 (0-0.2); BASOPHIL % 2.9 % (0.0-2.0); EOSINOPHIL # 0.2 TH/MM3 (0-0.4); EOSINOPHIL % 1.4 % (0.0-4.0); HEMATOCRIT 37.9 % (35.0-46.0); HEMOGLOBIN 12.4 GM/DL (11.6-15.3); LYMPH % 20.2 % (9.0-44.0); LYMPHOCYTE # 2.2 TH/MM3 (1.0-4.8); MEAN CELL VOLUME 86.2 FL (80.0-100.0); MEAN CORPUSCULAR HEMOGLOBIN 28.3 PG (27.0-34.0); MEAN CORPUSCULAR HGB CONC 32.8 % (32.0-36.0); MEAN PLATELET VOLUME 8.5 FL (7.0-11.0); MONO % 11.7 % (0.0-8.0); MONOCYTE # 1.3 TH/MM3 (0-0.9); NEUT % 63.8 % (16.0-70.0); PLATELET COUNT 335 TH/MM3 (150-450); RED CELL DISTRIBUTION WIDTH 13.6 % (11.6-17.2); WHITE BLOOD COUNT 10.8 TH/MM3 (4.0-11.0)
[2017-10-26 21:40] LABS: BILIRUBIN, URINE NEG (NEG); BLOOD, URINE SMALL (NEG); GLUCOSE,URINE NEG (NEG); KETONE, URINE NEG (NEG); NITRITE,URINE POS (NEG); URINE LEUKOCYTE ESTERASE MOD (NEG)
[2017-10-26 21:46] LABS: URINE COLOR YELLOW (YELLW/STRAW)
[2017-10-26 21:48] LABS: CHLORIDE 106 MEQ/L (98-107); SODIUM (NA) 140 MEQ/L (136-145)
[2017-10-26 21:49] LABS: BACTERIA, URINE FEW /hpf; SQUAMOUS EPITHELIAL CELL URINE 0-5 /hpf (0-5); WBC, URINE INNUM /hpf (0-5); WHITE BLOOD CELL CLUMPS FEW
[2017-10-26 21:51] LABS: CALCIUM 8.5 MG/DL (8.5-10.1)
[2017-10-26 21:52] LABS: ALBUMIN 3.5 GM/DL (3.4-5.0); BICARBONATE 28.1 MEQ/L (21.0-32.0); BLOOD UREA NITROGEN 13 MG/DL (7-18); GLUCOSE,RANDOM 85 MG/DL (74-106); LIPASE 108 U/L (73-393)
[2017-10-26 21:55] LABS: ALT (GPT) 12 U/L (10-53); AST (GOT) 13 U/L (15-37); CREATININE 0.86 MG/DL (0.50-1.00); GLOMERULAR FILTRATION RATE 97 ML/MIN (>89)
[2017-10-26 21:56] LABS: TOTAL BILIRUBIN ADULT 0.1 MG/DL (0.2-1.0); TOTAL PROTEIN 7.4 GM/DL (6.4-8.2)
[2017-10-26 21:58] LABS: ALKALINE PHOSPHATASE 51 U/L (45-117)
[2017-10-26 22:00] VITALS: BP 120/80; PULSE 75; RESP 18; TEMP 98.4; O2SAT 98
[2017-10-26] MEDS ORDERED: KETOROLAC TROMETHAMINE 30 MG/ML (IVP) VIAL IV PUSH ONE (22:00)
[2017-10-26] MEDS ORDERED: cefTRIAXone INJ 1,000 MG in SODIUM CHLORIDE 0.9% INJ 100 ML IV ONE (22:00)
[2017-10-26] MEDS ORDERED: PHENAZOPYRIDINE HCL 100 MG TAB PO ONE (22:00)
[2017-10-26] MEDS ORDERED: SODIUM CHLOR 0.9% 1000 ML INJ 1,000 ML IV ONE (22:00)
[2017-10-26] MEDS ORDERED: BACT800T5 PO (22:04)
[2017-10-26] MEDS ORDERED: ZOFR4TAB3 SL (22:04)
[2017-10-26] MEDS ORDERED: PHEN0.4T PO (22:04)
[2017-10-26 22:59] VITALS: BP 122/74; PULSE 79; RESP 18; TEMP 98.4; O2SAT 98
== END 2017-10-26 23:06 | disposition home or self-care (01) ==
LOC: PHED 20:53
DX: N39.0 Urinary tract infection, site not specified (principal); B96.20 Unspecified Escherichia coli [E. coli] as the cause of diseases classified elsewhere; I10 Essential (primary) hypertension; F20.9 Schizophrenia, unspecified; F17.210 Nicotine dependence, cigarettes, uncomplicated; Z85.43 Personal history of malignant neoplasm of ovary; Z87.440 Personal history of urinary (tract) infections; Z90.721 Acquired absence of ovaries, unilateral; Z91.040 Latex allergy status; Z79.899 Other long term (current) drug therapy
CPT/HCPCS: 80053; 81001; 83690; 84703; 85025; 87077; 87086; 87186; 96365; 96375; 99284; J0696; J1885; J7030

== ENCOUNTER 2018-01-23 14:03 | Emergency (ER) | payer SELFPAY ==
[~2018-01-23] VITALS: Ht 160 cm; Wt 59.0 kg
[~2018-01-23 14:03] MED LIST changes: +BACT800T5 PO; +PHEN0.4T PO; +ZOFR4TAB3 SL
[2018-01-23 14:44] VITALS: BP 95/52; PULSE 56; RESP 16; TEMP 98.6; O2SAT 98
[2018-01-23] MEDS ORDERED: PENI500T PO (15:52)
--- NOTE | 2018-01-23 15:52 | PD ---
HPI Chief Complaint: Oral / Dental Pain or Problem Time Seen by Provider: 15:22 Travel History International Travel<30 days: No Contact w/Intl Traveler<30days: No Traveled to known affect area: No History of Present Illness HPI 27-year-old female here with left lower dental pain for 3 days. Pain is throbbing and constant in the left lower jaw. She reports mild gum swelling. No fever or chills. No difficulty swallowing. Severity is moderate. Aggravated by chewing, hot and cold liquids. No alleviating factors. PFSH Past Medical History Arthritis: Yes Anxiety: Yes Depression: Yes Cancer: Yes (ovarian cancer pt pt) Diminished Hearing: No Genitourinary: Yes (U.T.I.'S) Headaches: Yes (per pt she has migraines frequently) Hypertension: Yes Musculoskeletal: Yes (bulging disc at C6) Neurologic: No Psychiatric: Yes (Schizoaffective disorder, bipolar type, acute exacerbation) Reproductive: Yes (ovarian cysts/left adnexal ovarian mass) Respiratory: No Schizophrenia: Yes ?: Not LMP: 01/19/18 Menopausal: No : 4 Para: 3 Miscarriage: 1 : 0 Ovarian Cysts: Yes Past Surgical History Gynecologic Surgery: Yes (ovarian cysts, left ovary and fallopean tube removed ) Hysterectomy: Yes Other Surgery: Yes (OVARIAN CYST REMOVAL BILATERALLY) Social History Alcohol Use: Yes (occasional/1 drink/4 days ago) Tobacco Use: Yes Substance Use: Yes (marajuana daily, 3 cigarettes/day; ETOH occasional) Allergies-Medications (Allergen,Severity, Reaction): Coded Allergies: latex (Verified Allergy, Severe, Hives, 10/26/17) kiwi (Verified Adverse Reaction, Severe, Nausea/Vomiting, 10/26/17) NAUSEA VOMITING AND DIARRHEA PER PT 11/25 Reported Meds & Prescriptions Reported Meds & Active Scripts Active Zofran Odt (Ondansetron Odt) 4 Mg Tab 4 Mg SL Q6HR PRN Pyridium (Phenazopyridine HCl) 100 Mg Tab 100 Mg PO Q8H PRN Bactrim DS (Sulfamethoxazole-Trimethoprim) 800-160 Mg Tab 1 Tab PO BID Dok (Docusate Sodium) 100 Mg Cap 100 Mg PO BID 15 Days Stop this med if you develop loose stools. Sav White Dual Chamber Inj (Aripiprazole) 400 Mg Inj 400 Mg IM Q28D This dose of Abilify Maintena due on 07/06/2017. Abilify (Aripiprazole) 20 Mg Tab 20 Mg PO DAILY 14 Days Be sure to get your next Abilify Maintena injection. Review of Systems Except as stated in HPI: all other systems reviewed are Neg General / Constitutional: No: Fever Eyes: No: Visual changes HENT: Positive: Dental Difficulties Cardiovascular: No: Chest Pain or Discomfort Respiratory: No: Shortness of Breath Gastrointestinal: No: Abdominal Pain Physical Exam Narrative GENERAL: Alert and well-appearing 27-year-old female SKIN: Warm and dry. HEAD: Normocephalic. EYES: No injection or drainage. MOUTH: Notable gum swelling and erythema surrounding tooth #17. No swelling to the floor the mouth. Uvula is midline. Airways patent. Normal phonation. NECK: Supple. No lymphadenopathy. CARDIOVASCULAR: Regular rate and rhythm RESPIRATORY: Breath sounds equal bilaterally. No accessory muscle use. GASTROINTESTINAL: Abdomen soft, non-tender, nondistended. MUSCULOSKELETAL: No cyanosis, or edema. Data Data Last Documented VS Vital Signs Date Time Temp Pulse Resp B/P (MAP) Pulse Ox O2 Delivery O2 Flow Rate FiO2 01/23/18 14:44 98.6 56 16 95/52 (66) 98 Room Air MDM Medical Decision Making Medical Screen Exam Complete: Yes Emergency Medical Condition: Yes Differential Diagnosis Dental abscess, dental caries, periodontal disease Narrative Course 27-year-old female with mild dental infection surrounding her left lower molar. She was treated with penicillin. Instructed to follow-up with dentist Diagnosis Primary Impression: Dental infection Referrals: Dentist Additional Instructions: Medication as directed. Follow-up with her dentist. Scripts Penicillin V Potassium (Penicillin V Potassium) 500 Mg Tab 500 MG PO Q6H for Infection for 7 Days, #28 TAB 0 Refills Prov: Brenna Caban 01/23/18 Disposition: 01 DISCHARGE HOME Condition: Stable Brenna Caban Jan 23, 2018 15:52
== END 2018-01-23 16:06 | disposition home or self-care (01) ==
LOC: PHEFT 14:03
DX: K04.7 Periapical abscess without sinus (principal); F41.8 Other specified anxiety disorders; I10 Essential (primary) hypertension; F25.9 Schizoaffective disorder, unspecified; F12.90 Cannabis use, unspecified, uncomplicated; Z72.0 Tobacco use
CPT/HCPCS: 99283